=== PATIENT | female | born 1945 | race Caucasian/White ===

== ENCOUNTER 2016-10-31 11:57 | Outpatient (CLI) | payer MEDICARE | END 2016-10-31 11:58 | disposition home or self-care (01) | DX: R06.00 Dyspnea, unspecified (principal); K44.9 Diaphragmatic hernia without obstruction or gangrene ==

== ENCOUNTER 2017-05-29 19:53 | Outpatient (CLI) | payer MEDICARE | END 2017-05-29 19:54 | disposition home or self-care (01) | LOC: LAB.R 19:53 | PROVIDERS: ATTEND Physician Assistant Medical | DX: N30.00 Acute cystitis without hematuria (principal) | CPT/HCPCS: 87086 ==

== ENCOUNTER 2017-07-27 15:37 | Emergency (ER) | payer MEDICARE ==
[2017-07-27 15:51] VITALS: BP 195/96
--- NOTE | 2017-07-27 16:35 | XRAY Preliminary Report ---
Exam: XR FOOT 3 VIEW LT IMPRESSION: Nondisplaced fifth metatarsal base fracture. [facility] SITE ID: [id number]
--- NOTE | 2017-07-27 16:37 | XRAY Report ---
EXAM: LEFT FOOT RADIOGRAPHY EXAM DATE: 07/27/2017 04:08 PM. CLINICAL HISTORY: Twist, pain. COMPARISON: None. TECHNIQUE: 3 views. FINDINGS: Bones: Osteopenia. Nondisplaced transverse fracture of fifth metatarsal base. Otherwise unremarkable. Joints: Normal. No subluxations. Soft Tissues: Mild soft tissue swelling. IMPRESSION: Nondisplaced fifth metatarsal base fracture. [facility] Referring Provider Line: [phone] SITE ID: [id number]
--- NOTE | 2017-07-27 16:44 | ED Physician Documentation ---
PD HPI LOWER EXT INJURY - Stated complaint Stated Complaint: Lt Foot pain - Chief complaint Chief Complaint: Trauma Ext - History obtained from History obtained from: Patient - History of Present Illness PD HPI LOW EXT INJURY LOCATION: Left, Foot Type of injury: Fall, Twist Where injury occurred: Street Timing - onset: Today Worsened by: Other (weightbearing) Associated symptoms: No: Weakness, Numbness Similar symptoms before: Has not had sx before - Additional information Additional information: The patient is a 71-year-old female who tripped on the sidewalk just prior to arrival, twisting her left foot and falling. She presents now with swelling and pain at the lateral aspect of her left foot. Her pain is worse with weightbearing. She also reports having dropped firewood on the dorsum of her left foot 3 days ago. She denies any other injuries. Medical history is significant for hepatitis C. Review of Systems Constitutional: denies: Fever Respiratory: denies: Dyspnea GI: denies: Abdominal Pain Musculoskeletal: reports: Extremity pain (left foot). denies: Back pain Neurologic: denies: Focal weakness, Numbness, Head injury PD PAST MEDICAL HISTORY - Past Medical History Past Medical History: Yes Cardiovascular: Hypertension Respiratory: Asthma Neuro: None Endocrine/Autoimmune: None GI: GERD, Hiatal hernia, Hepatitis, Cholelithiasis : None HEENT: None Psych: None, Claustrophobia Musculoskeletal: None, Osteoarthritis, Other Derm: None - Past Surgical History Past Surgical History: Yes General: Cholecystectomy, Colonoscopy, EGD, Other Ortho: Arthroscopic surgery - Present Medications Home Medications: Ambulatory Orders Medication Instructions Recorded Confirmed Ascorbic Acid [Vitamin C] 1,000 mg PO DAILY 12/22/15 07/27/17 Calcium Carb/Mag Ox/Zinc Sulf [Hm 1 each PO DAILY 12/22/15 07/27/17 Tacuofs-Ybvppevay-Elxh Cplt] Cholecalciferol (Vitamin D3) 2,000 units PO DAILY 12/22/15 07/27/17 [Vitamin D3] Phytonadione [Vitamin K] 5 mg PO ONCE 12/22/15 07/27/17 Vitamin E 400 unit PO DAILY 12/22/15 07/27/17 Vitamin A 20,000 unit PO DAILY 07/27/17 07/27/17 - Allergies Allergies/Adverse Reactions: Allergies Allergy/AdvReac Type Severity Reaction Status Date / Time lidocaine Allergy Unknown Verified 10/17/14 11:21 phenazopyridine HCl * Allergy Unknown Verified 10/17/14 11:21 [From Pyridium] Sulfa (Sulfonamide Allergy Anxiety Verified 10/17/14 11:21 Antibiotics) - Social History Does the pt smoke?: No Smoking Status: Never smoker Does the pt drink ETOH?: No Does the pt have substance abuse?: No - Immunizations Immunizations are current?: Yes PD ED PE NORMAL - Vitals Vital signs reviewed: Yes (hypertensive) - General General: Alert and oriented X 3, Well developed/nourished, Other (overweight) - HEENT HEENT: Atraumatic - Neck Neck: No bony TTP - Respiratory Respiratory: No respiratory distress - Back Back: No spinal TTP - Derm Derm: No rash - Extremities Extremities: No calf tenderness / cord, Other (There is slight swelling and associated tenderness to palpation over the lateral aspect of the left foot at the base of the fifth metatarsal. There is a very superficial abrasion on the dorsum of the midfoot. Distal neurovascular is intact.) - Neuro Neuro: Alert and oriented X 3, No motor deficit, No sensory deficit Results - Vitals Vitals: Oxygen O2 Source Room air - Rads (name of study) left foot Radiology: Prelim report reviewed, EMP read contemporaneously, See rad report ( Nondisplaced fifth metatarsal base fracture.) PD MEDICAL DECISION MAKING - ED course Complexity details: reviewed results, re-evaluated patient, considered differential, d/w patient ED course: The patient's presentation is significant for a nondisplaced fracture at the base of the left fifth metatarsal tarsal. Treatment in the emergency included application of a postop shoe. She demonstrates ability to ambulate using her cane. I discussed with her the expected course of injury, symptomatic treatment and outpatient follow-up, as well as potentially worrisome signs or symptoms that should prompt reevaluation in the emergency department. Departure - Departure Disposition: 01 Home, Self Care Clinical Impression: Fractured metatarsal bone Qualifiers: Encounter type: initial encounter Metatarsal bone: fifth Fracture type: closed Fracture alignment: nondisplaced Laterality: left Qualified Code(s): S92.355A - Nondisplaced fracture of fifth metatarsal bone, left foot, initial encounter for closed fracture Condition: Stable Instructions: ED Fx Foot Follow-Up: Pankaj Ferrara ARNP [Primary Care Provider] - [facility] [Provider Group] Comments: Keep your left foot elevated as much the time as possible. Apply icepack intermittently for the next 3 days. Use the postop shoe when walking. Follow up with her primary physician or with the alignment specialist within 2 weeks. Call to schedule an appointment. Return to the emergency department if you develop markedly increasing pain or swelling, or otherwise worsening symptoms. Discharge Date/Time: 07/27/17 17:54
== END 2017-07-27 17:54 | disposition home or self-care (01) ==
LOC: ED 15:37
DX: S92.355A Nondisplaced fracture of fifth metatarsal bone, left foot, initial encounter for closed fracture (principal); W01.0XXA Fall on same level from slipping, tripping and stumbling without subsequent striking against object, initial encounter; X50.9XXA Other and unspecified overexertion or strenuous movements or postures, initial encounter; W22.8XXA Striking against or struck by other objects, initial encounter; Y93.K1 Activity, walking an animal; Y92.480 Sidewalk as the place of occurrence of the external cause; I10 Essential (primary) hypertension
CPT/HCPCS: 99283

== ENCOUNTER 2017-08-27 08:04 | Outpatient (CLI) | payer MEDICARE ==
--- NOTE | 2017-08-27 10:06 | Ultrasound Report ---
RIGHT UPPER QUADRANT ULTRASOUND: 08/27/2017 CLINICAL INDICATION: Cirrhosis. COMPARISON: 08/10/2016. TECHNIQUE: Real-time scanning was performed with manufacturing sales representative static images obtained. FINDINGS: The liver measures 16.2 cm. Hepatic echogenicity is heterogeneous, with a mild lobulation of the surface, compatible with cirrhosis. No focal lesion or intrahepatic biliary dilatation is pres ent. The common bile duct measures 7 mm. The gallbladder is surgically absent. The right kidney measu res 10.2 cm, and demonstrates no hydronephrosis. No free fluid is present. IMPRESSION: CIRRHOTIC CHANGES IN THE LIVER. NO FOCAL MASS OR BILIARY DILATATION. CHANGES OF CHOLECYS TECTOMY. 9:9:03 JOB #: [id number] EXT JOB #:[id number]
== END 2017-08-27 08:05 | disposition home or self-care (01) ==
LOC: DI 08:04
PROVIDERS: ATTEND Physician Assistant
DX: K74.60 Unspecified cirrhosis of liver (principal); Z90.49 Acquired absence of other specified parts of digestive tract
CPT/HCPCS: 76705

== ENCOUNTER 2018-01-28 09:01 | Outpatient (CLI) | payer MEDICARE ==
--- NOTE | 2018-01-28 13:17 | Ultrasound Report ---
COMPLETE ABDOMINAL ULTRASOUND: 01/28/2018 CLINICAL INDICATION: Hepatitis C. COMPARISON: 07/27/2017. TECHNIQUE: Real-time scanning was performed with insurance sales representative static images obtained. FINDINGS: The liver measures 17 cm. Hepatic echotexture is heterogeneous, with a nodular surface contour, compatible with cirrhosis. No focal parenchymal lesion or intrahepatic biliary dilatation is seen. The common bile duct measures 7 mm. The gallbladder is surgically absent. The pancreas is obscured by bowel gas. The kidneys are normal, with the right measuring 10.2 cm and the left measuring 11.4 cm. The spleen measures 10.2 cm, and demonstrates normal echotexture. The abdominal aorta is normal in caliber throughout. The inferior vena cava is unremarkable. No free fluid is present. IMPRESSION: CIRRHOTIC LIVER. NO FOCAL LESION OR BILIARY OBSTRUCTION. TD: 01/28/2018 13:16
== END 2018-01-28 09:02 | disposition home or self-care (01) ==
LOC: DI 09:01
PROVIDERS: ATTEND Internal Medicine Gastroenterology
DX: B19.20 Unspecified viral hepatitis C without hepatic coma (principal); K74.69 Other cirrhosis of liver
CPT/HCPCS: 76700

== ENCOUNTER 2018-03-26 11:54 | Outpatient (CLI) | payer MEDICARE ==
--- NOTE | 2018-03-27 14:53 | DEXA Report ---
Procedure Date: 03/26/2018 Accession Number: [id number] / [id number] Procedure: DEX - Dexa Spine and/or Hip CPT Code: FULL RESULT: EXAM: Dexa Spine and/or Hip DATE: 03/26/2018 12:52 PM CLINICAL HISTORY: OSTEOPOROSIS TECHNIQUE: Dual energy x-ray absorptiometry (DXA) was performed on a lmbang System. Regions measured are the AP Spine, femoral neck, and if needed forearm. COMPARISON: None. In accordance with the International Society for Clinical Densitometry (ISCD) guidelines, data from previous exams may be reanalyzed using current recommendations and techniques. This is done to allow a more accurate basis for comparison with the current study. FINDINGS: The data for the lumbar spine is as follows: BMD (g/cm/cm) T-SCORE Z-SCORE REGION L1 0.879 -2.1 -1.4 L2 0.859 -2.8 -2.1 L3 0.826 -3.1 -2.4 L4 0.776 -3.5 -2.8 TOTAL 0.833 -2.9 -2.2 NOTE: All evaluable vertebrae are used for classification The data for the hip is as follows: BMD (g/cm/cm) T-SCORE Z-SCORE REGION Neck 0.642 -2.9 -1.7 TOTAL 0.728 -2.2 -1.3 NOTE: The femoral neck or total proximal femur, whichever is lowest, is used for classification. IMPRESSION: THE WHO CLASSIFICATION BASED ON THE INTERNATIONAL REFERENCE STANDARD IS OSTEOPOROSIS. THE FRACTURE RISK IS HIGH. RECOMMENDATION: Patients with diagnosis of osteoporosis or osteopenia should have regular bone mineral density assessment. For those eligible for Medicare, routine testing is allowed once every 2 years. Testing frequency can be increased for patients who have rapidly progressing disease or for those who are receiving medical therapy to restore bone mass. COMMENT: World Health Organization (WHO) definitions for osteoporosis and osteopenia: NORMAL BMD: T-score at -1.0 or higher, fracture risk is low OSTEOPENIA BMD: T-score between -1.0 and -2.5, fracture risk is increased. OSTEOPOROSIS BMD: T-score at -2.5 or lower, fracture risk is high. National Osteoporosis Foundation recommends: 1. Obtain adequate dietary calcium (at least 1200 mg per day) and vitamin D (400-800 international units per day). 2. Participate, as appropriate, in regular weightbearing and muscle-strengthening exercise. 3. Avoid tobacco use and reduce alcohol and caffeine intake. 4. For more detailed information see the website at www.NOF.org.
== END 2018-03-26 11:55 | disposition home or self-care (01) ==
LOC: DI 11:54
PROVIDERS: ATTEND Nurse Practitioner Primary Care
DX: M81.0 Age-related osteoporosis without current pathological fracture (principal); Z79.899 Other long term (current) drug therapy
CPT/HCPCS: 77080

== ENCOUNTER 2018-04-29 14:52 | Outpatient (CLI) | payer MEDICARE ==
--- NOTE | 2018-05-01 08:44 | Mammography Report ---
Procedure Date: 04/29/2018 Accession Number: [id number] / [id number] Procedure: MGN - Screening Mammo Dig Bilat CPT Code: FULL RESULT: EXAM: Screening Mammo Dig Bilat DATE: 04/29/2018 3:17 PM CLINICAL HISTORY: 72-year-old female with history of early menses and family history of breast cancer in her mother at age 60 with a right breast cyst surgically removed in 1965 with benign pathology results. TECHNIQUE: Bilateral CC and MLO views were obtained. COMPARISON: 01/04/2016, 12/17/2014, 11/10/2013, 10/18/2012. FINDINGS: The breasts demonstrate diffuse fatty replacement bilaterally. Typically benign coarse calcifications are seen in both breasts. Typically benign vascular calcifications are identified in both breasts. No suspicious masses, clustered microcalcifications, or regions of architectural distortion are identified. IMPRESSION: Benign findings RECOMMENDATION: Routine annual screening unless otherwise clinically indicated. BIRADS CATEGORY 2: Benign findings STANDARD QUALIFYING STATEMENTS: 1. This examination was reviewed with the aid of Computer-Aided Detection (CAD). 2. A negative or benign imaging report should not delay biopsy if clinically suspicious findings are present. Consider surgical consultation if warrented. More than 5% of cancers are not identified by imaging. 3. Dense breasts may obscure an underlying neoplasm.
== END 2018-04-29 14:53 | disposition home or self-care (01) ==
LOC: DI.N 14:52
PROVIDERS: ATTEND Nurse Practitioner Primary Care
DX: Z12.31 Encounter for screening mammogram for malignant neoplasm of breast (principal); Z80.3 Family history of malignant neoplasm of breast
CPT/HCPCS: 77067

== ENCOUNTER 2018-05-13 08:24 | Outpatient (CLI) | payer MEDICARE ==
[2018-05-13 12:03] LABS: BASOPHILS % (AUTO) 0.5 %; EOSINOPHILS # (AUTO) 0.2 10^3/uL (0.0-0.7); EOSINOPHILS % (AUTO) 4.6 %; HGB - HEMOGLOBIN 13.5 g/dL (12.0-16.0); LYMPHOCYTES # (AUTO) 1.5 10^3/uL (1.5-3.5); LYMPHOCYTES % (AUTO) 28.9 %; MEAN CORPUSCULAR HEMOGLOBIN 28.8 pg (27.0-31.0); MEAN CORPUSCULAR HGB CONC 33.9 g/dL (32.0-36.0); MEAN CORPUSCULAR VOLUME 84.9 fL (81.0-99.0); MEAN PLATELET VOLUME 8.2 fL (7.9-10.8); MONOCYTES # (AUTO) 0.6 10^3/uL (0.0-1.0); MONOCYTES % (AUTO) 10.9 %; NEUTROPHILS # (AUTO) 2.9 10^3/uL (1.5-6.6); NEUTROPHILS % (AUTO) 55.1 %; PLT - PLATELET COUNT 221 10^3/uL (130-450); RED BLOOD COUNT 4.69 10^6/uL (4.20-5.40); RED CELL DISTRIBUTION WIDTH 14.7 % (12.0-15.0); WHITE BLOOD COUNT 5.2 x10^3/uL (4.8-10.8)
[2018-05-13 12:21] LABS: ALBUMIN 3.5 g/dL (3.2-5.5); ALKALINE PHOSPHATASE 51 IU/L (42-121); ALT ALANINE AMINOTRANSFERASE 15 IU/L (10-60); AST ASPARTATE AMINOTRANSFERASE 21 IU/L (10-42); BILIRUBIN,TOTAL 0.8 mg/dL (0.2-1.0); BUN - BLOOD UREA NITROGEN 14 mg/dL (6-20); CALCIUM 9.1 mg/dL (8.5-10.3); CARBON DIOXIDE - CO2 27 mmol/L (21-32); CHLORIDE 104 mmol/L (101-111); CHOL/HDL RATIO 5.2 (<4.4); CHOLESTEROL 194 mg/dL; CREATININE 0.7 mg/dL (0.4-1.0); GFR - MDRD 82 (>89); GLUCOSE 103 mg/dL (70-100); HDL CHOLESTEROL 37 mg/dL; LDL CHOLESTEROL,CALCULATED 124 mg/dL; LDL/HDL RATIO 3.4 (<4.4); SODIUM 137 mmol/L (135-145); TOTAL PROTEIN 7.1 g/dL (6.7-8.2); VLDL CHOLESTEROL 33 mg/dL
== END 2018-05-13 08:25 | disposition home or self-care (01) ==
LOC: LAB.F 08:24
PROVIDERS: ATTEND Nurse Practitioner Primary Care
DX: M81.0 Age-related osteoporosis without current pathological fracture (principal); Z79.899 Other long term (current) drug therapy; E78.5 Hyperlipidemia, unspecified; I10 Essential (primary) hypertension; Z87.19 Personal history of other diseases of the digestive system
CPT/HCPCS: 36415; 80053; 80061; 82306; 83721; 84443; 85025

== ENCOUNTER 2018-06-11 11:50 | Outpatient (CLI) | payer MEDICARE ==
[2018-06-11 13:36] LABS: BASOPHILS % (AUTO) 0.8 %; EOSINOPHILS # (AUTO) 0.2 10^3/uL (0.0-0.7); EOSINOPHILS % (AUTO) 4.3 %; HGB - HEMOGLOBIN 12.8 g/dL (12.0-16.0); LYMPHOCYTES # (AUTO) 1.4 10^3/uL (1.5-3.5); LYMPHOCYTES % (AUTO) 30.8 %; MEAN CORPUSCULAR HEMOGLOBIN 28.8 pg (27.0-31.0); MEAN CORPUSCULAR HGB CONC 34.3 g/dL (32.0-36.0); MEAN CORPUSCULAR VOLUME 84.1 fL (81.0-99.0); MEAN PLATELET VOLUME 8.2 fL (7.9-10.8); MONOCYTES # (AUTO) 0.5 10^3/uL (0.0-1.0); MONOCYTES % (AUTO) 11.3 %; NEUTROPHILS # (AUTO) 2.4 10^3/uL (1.5-6.6); NEUTROPHILS % (AUTO) 52.8 %; PLT - PLATELET COUNT 241 10^3/uL (130-450); RED BLOOD COUNT 4.42 10^6/uL (4.20-5.40); RED CELL DISTRIBUTION WIDTH 14.2 % (12.0-15.0); WHITE BLOOD COUNT 4.5 x10^3/uL (4.8-10.8)
[2018-06-11 13:44] LABS: ALBUMIN 3.5 g/dL (3.2-5.5); BILIRUBIN,TOTAL 0.5 mg/dL (0.2-1.0); CREATININE 0.6 mg/dL (0.4-1.0); TOTAL PROTEIN 6.9 g/dL (6.7-8.2)
== END 2018-06-11 11:51 | disposition home or self-care (01) ==
LOC: LAB.R 11:50
PROVIDERS: ATTEND Nurse Practitioner Primary Care
DX: R10.11 Right upper quadrant pain (principal); K74.69 Other cirrhosis of liver
CPT/HCPCS: 80053; 85025

== ENCOUNTER 2018-07-16 15:50 | Outpatient (CLI) | payer MEDICARE | END 2018-07-16 15:51 | disposition home or self-care (01) | LOC: LAB.R 15:50 | PROVIDERS: ATTEND Physician Assistant Medical | DX: N30.00 Acute cystitis without hematuria (principal) | CPT/HCPCS: 87086 ==

== ENCOUNTER 2018-07-23 07:26 | Outpatient (CLI) | payer MEDICARE ==
--- NOTE | 2018-07-23 14:42 | Ultrasound Report ---
Reason: CHRONIC HEPATISIS C WITH CIRRHOSIS Procedure Date: 07/23/2018 Accession Number: [id number] / [id number] Procedure: US - Abdomen Limited CPT Code: FULL RESULT: EXAM: ABDOMEN ULTRASOUND LIMITED, RUQ EXAM DATE: 07/23/2018 07:33 AM. CLINICAL HISTORY: CHRONIC HEPATISIS C WITH CIRRHOSIS. For follow-up COMPARISON: 01/28/2018 TECHNIQUE: Real-time scanning was performed with static images obtained. FINDINGS: Liver: Coarse echotexture consistent with fatty infiltration. Left lobe nodular contour. No masses. 16.9 cm. Main portal vein flow: Hepatopetal. Gallbladder: Surgically absent. Biliary System: CBD measures 5 mm. No intrahepatic or extrahepatic ductal dilatation. Free fluid: None. Right kidney: 10.4 cm longitudinally. No hydronephrosis. IMPRESSION: Status post cholecystectomy. Cirrhotic liver without masses. [facility]
== END 2018-07-23 07:27 | disposition home or self-care (01) ==
LOC: DI 07:26
PROVIDERS: ATTEND Internal Medicine Gastroenterology
DX: B18.2 Chronic viral hepatitis C (principal); K74.60 Unspecified cirrhosis of liver; Z90.49 Acquired absence of other specified parts of digestive tract
CPT/HCPCS: 76705

== ENCOUNTER 2018-10-25 13:33 | Outpatient (CLI) | payer MEDICARE ==
[2018-10-25 17:57] LABS: ALT ALANINE AMINOTRANSFERASE 14 IU/L (10-60); AST ASPARTATE AMINOTRANSFERASE 21 IU/L (10-42)
[2018-10-25 18:05] LABS: INR 1.1 (0.8-1.2); PT - PROTHROMBIN TIME 12.5 secs (9.9-12.6)
== END 2018-10-25 13:34 | disposition home or self-care (01) ==
LOC: LAB.F 13:33
PROVIDERS: ATTEND Nurse Practitioner Primary Care
DX: Z79.899 Other long term (current) drug therapy (principal)
CPT/HCPCS: 36415; 84450; 84460; 85610

== ENCOUNTER 2019-01-04 16:01 | Outpatient (CLI) | payer MEDICARE | END 2019-01-04 16:02 | disposition critical access hospital (66) | LOC: EMS 16:01 | PROVIDERS: ATTEND Surgery | DX: R11.2 Nausea with vomiting, unspecified (principal); R53.1 Weakness | CPT/HCPCS: A0425; A0429 ==

== ENCOUNTER 2019-01-04 16:23 | Emergency (ER) | payer MEDICARE ==
--- NOTE | 2019-01-04 16:33 | ED Physician Documentation ---
History of Present Illness - Stated complaint Stated Complaint: N/V/D - History obtained from History obtained from: Patient - History of Present Illness Timing: Last night - Additonal information Additional information: Patient is a 73-year-old female with history of hypertension, although do have concern for other disease processes, including hepatitis given her report, although she denies specific diagnoses or taking medications for such. She is presenting with nausea, vomiting, and diarrhea for less than 24 hours, which started last night. Patient also complains of a subjective fever for which she took 2 Tylenol earlier today, but believes that she vomited them back up nearly immediately. Patient denies abdominal pain or other pain except for when she is actively vomiting or having diarrhea.Patient reports that she has been able to tolerate Gatorade and is urinating well. Patient states that she had no new food exposures or new medications. Patient did admit to cleaning up a rat in her trailer yesterday during the day, but denies any other environmental exposures. No other improving or worsening factors. Review of Systems Constitutional: reports: Fever Respiratory: denies: Dyspnea GI: reports: Abdominal Pain, Nausea, Vomiting, Diarrhea PD PAST MEDICAL HISTORY - Past Medical History Cardiovascular: Hypertension Respiratory: Asthma Endocrine/Autoimmune: None GI: GERD, Hiatal hernia, Hepatitis, Cholelithiasis : None HEENT: None Psych: None, Claustrophobia Musculoskeletal: None, Osteoarthritis, Other Derm: None - Past Surgical History Past Surgical History: Yes General: Cholecystectomy, Colonoscopy, EGD, Other Ortho: Arthroscopic surgery - Present Medications Home Medications: Ambulatory Orders Medication Instructions Recorded Confirmed Ascorbic Acid [Vitamin C] 1,000 mg PO DAILY 12/22/15 06/06/18 Calcium Carb/Mag Ox/Zinc Sulf [Hm 1 each PO DAILY 12/22/15 06/06/18 Aetegst-Jyphicvgw-Uokq Cplt] Cholecalciferol (Vitamin D3) 2,000 units PO DAILY 12/22/15 06/06/18 [Vitamin D3] Phytonadione [Vitamin K] 5 mg PO ONCE 12/22/15 06/06/18 RX: Vitamin E 400 unit PO DAILY 12/22/15 06/06/18 RX: Vitamin A 20,000 unit PO DAILY 07/27/17 06/06/18 Clonidine HCl [Catapres] 0.3 mg PO DAILY 06/06/18 06/06/18 Ondansetron Odt [Zofran] 4 mg TL Q6H PRN #10 tablet 01/04/19 - Allergies Allergies/Adverse Reactions: Allergies Allergy/AdvReac Type Severity Reaction Status Date / Time lidocaine Allergy Unknown Verified 01/04/19 16:35 phenazopyridine HCl * Allergy Unknown Verified 01/04/19 16:35 [From Pyridium] Sulfa (Sulfonamide Allergy Anxiety Verified 01/04/19 16:35 Antibiotics) - Social History Does the pt smoke?: No Smoking Status: Never smoker Does the pt drink ETOH?: No Does the pt have substance abuse?: No - Immunizations Immunizations are current?: Yes PD ED PE NORMAL - General General: Alert and oriented X 3, No acute distress, Well developed/nourished - HEENT HEENT: Atraumatic, Pharynx benign. No: Moist mucous membranes (Slightly dry mucous membranes) - Neck Neck: Supple, no meningeal sign - Cardiac Cardiac: RRR, No murmur - Respiratory Respiratory: No respiratory distress, Clear bilaterally - Abdomen Abdomen: Normal bowel sounds, Soft, Non tender, Non distended - Derm Derm: Normal color, Warm and dry, No rash - Extremities Extremities: No deformity, No tenderness to palpate, No edema - Neuro Neuro: Alert and oriented X 3, No motor deficit, No sensory deficit - Psych Psych: Normal mood, Normal affect Results - Vitals Vitals: Vital Signs - 24 hr 01/04/19 01/04/19 01/04/19 16:31 18:37 19:23 Temperature 37.8 C H 37.2 C Heart Rate 92 80 84 Respiratory 20 22 19 Rate Blood Pressure 168/70 H 177/66 H 174/69 H O2 Saturation 97 96 95 01/04/19 20:58 Temperature 36.3 C L Heart Rate 79 Respiratory 15 Rate Blood Pressure 178/79 H O2 Saturation 97 Oxygen O2 Source Room air - Labs Labs: Laboratory Tests 01/04/19 01/04/19 01/04/19 17:00 17:00 17:00 WBC 5.8 RBC 4.80 Hgb 12.5 Hct 38.9 MCV 81.1 MCH 26.0 L MCHC 32.0 RDW 14.8 Plt Count 257 MPV 8.2 Neut # (Auto) 5.0 Lymph # (Auto) 0.3 L [place] # (Auto) 0.4 Eos # (Auto) 0.0 Baso # (Auto) 0.0 Absolute Nucleated RBC 0.00 Nucleated RBC % 0.0 Sodium 141 Potassium 3.2 L Chloride 106 Carbon Dioxide 21 Anion Gap 14.0 H BUN 16 Creatinine 0.6 Estimated GFR (MDRD) 98 Glucose 133 H Lactic Acid 2.4 H Calcium 9.0 Total Bilirubin 0.9 AST 26 ALT 16 Alkaline Phosphatase 50 Total Protein 7.8 Albumin 3.9 Globulin 3.9 Albumin/Globulin Ratio 1.0 Lipase 22 Urine Color Urine Clarity Urine pH Ur Specific [place] Urine Protein Urine Glucose (UA) Urine Ketones Urine Occult Blood Urine Nitrite Urine Bilirubin Urine Urobilinogen Ur Leukocyte Esterase Ur Microscopic Review Urine Culture Comments Influenza A (Rapid) Influenza B (Rapid) 01/04/19 01/04/19 01/04/19 18:01 19:30 19:40 WBC RBC Hgb Hct MCV MCH MCHC RDW Plt Count MPV Neut # (Auto) Lymph # (Auto) [place] # (Auto) Eos # (Auto) Baso # (Auto) Absolute Nucleated RBC Nucleated RBC % Sodium Potassium Chloride Carbon Dioxide Anion Gap BUN Creatinine Estimated GFR (MDRD) Glucose Lactic Acid 1.7 Calcium Total Bilirubin AST ALT Alkaline Phosphatase Total Protein Albumin Globulin Albumin/Globulin Ratio Lipase Urine Color YELLOW Urine Clarity CLEAR Urine pH 5.5 Ur Specific [place] 1.020 Urine Protein NEGATIVE Urine Glucose (UA) NEGATIVE Urine Ketones NEGATIVE Urine Occult Blood NEGATIVE Urine Nitrite NEGATIVE Urine Bilirubin NEGATIVE Urine Urobilinogen 0.2 (NORMAL) Ur Leukocyte Esterase NEGATIVE Ur Microscopic Review NOT INDICATED Urine Culture Comments NOT INDICATED Influenza A (Rapid) Negative Influenza B (Rapid) Negative PD MEDICAL DECISION MAKING - ED course Complexity details: reviewed results, re-evaluated patient, considered differential, d/w patient ED course: Concerning for viral illness, gastroenteritis, as well as other exposure related issues like hanta virus given patient's recent exposure to rodents, particularly a rat. Also concerned generally for sepsis, although unsure of source, likely intra-abdominal, particularly given patient's symptoms and vital signs. Patient started on fluid resuscitation and given borderline elevated temperature, received IV Tylenol in addition to antiemetic medication. Did not feel she required immediate empiric antibiotics, but wanted to wait for additional information from blood work and testing. Given concern for hanta virus and sepsis, ordered imaging of chest x-ray, although patient has minimal to no respiratory complaints.Patient declined as she stated she recently had chest x-ray that returned unremarkable. Screening lab work returned relatively unremarkable except for elevated lactic acid alone, no acute kidney injury or leukocytosis noted. Additionally, no significant anemia or electrolyte disturbances noted. Patient continued on fluid resuscitation for likely dehydration. Urinalysis also returned without evidence of obvious infection.Did obtain CT imaging of abdomen/pelvis which do not find evidence of acute pathology such as appendicitis, small bowel obstruction, AAA, diverticulitis. During repeat ED evaluations, patient reported significant improvement of all symptoms and much more comfortable. Had extensive discussions regarding possible hanta virus, as well as results of today's workup. At this time, patient is most comfortable with discharge home and feel that this is appropriate given her significant improvement, particularly in normalization of her lactic acid following fluid resuscitation. Additionally, after conferring with the colleague, it is unlikely that this hospital has a capability of hanta virus testing, which would likely be a send out and the results would likely not change our treatment path. Feel that patient can continue supportive cares at home versus hospitalization. Patient voiced understanding of all strict return precautions and follow-up instructions. Patient comfortable with discharge plan. Departure - Departure Disposition: Home, Self Care Clinical Impression: Viral syndrome Condition: Good Instructions: Nausea Vomit Control, ED Diet Vomiting Diarrhea, ED Viral Syndrome Follow-Up: Kimmy Welch ARNP [Primary Care Provider] - Within 3 Days Prescriptions: Ondansetron Odt [Zofran] 4 mg TL Q6H PRN #10 tablet PRN Reason: Nausea / Vomiting Comments: Please use Zofran as instructed for nausea and vomiting control. Recommend use of Gatorade/Powerade and advancing diet as tolerated. Please follow-up with your primary care physician on Sunday if you cannot get an appointment for follow-up then, please return to the ED for reevaluation. Additionally, if you have any worsening symptoms including fever, persistent nausea or vomiting, worsening diarrhea, abdominal pain, difficulty breathing, cough or other concerns, please return immediately to the ED. Discharge Date/Time: 01/04/19 20:58
[2019-01-04] MEDS ORDERED: SODIUM CHLORIDE 0.9% 2,000 ML IV ONE (16:46)
[2019-01-04] MEDS ORDERED: ONDANSETRON 4 MG/2 ML VIAL IVP STA (16:46)
[2019-01-04] MEDS ORDERED: ACETAMINOPHEN 1,000 MG/100 ML 100 ML IV STA (16:47)
[2019-01-04 17:12] LABS: BASOPHILS % (AUTO) 0.3 %; EOSINOPHILS % (AUTO) 0.1 %; HGB - HEMOGLOBIN 12.5 g/dL (12.0-16.0); LYMPHOCYTES # (AUTO) 0.3 10^3/uL (1.5-3.5); LYMPHOCYTES % (AUTO) 5.2 %; MEAN CORPUSCULAR VOLUME 81.1 fL (81.0-99.0); MEAN PLATELET VOLUME 8.2 fL (7.9-10.8); MONOCYTES # (AUTO) 0.4 10^3/uL (0.0-1.0); MONOCYTES % (AUTO) 6.8 %; NEUTROPHILS % (AUTO) 87.6 %; PLT - PLATELET COUNT 257 10^3/uL (130-450); RED CELL DISTRIBUTION WIDTH 14.8 % (12.0-15.0); WHITE BLOOD COUNT 5.8 x10^3/uL (4.8-10.8)
[2019-01-04 17:21] LABS: ALBUMIN 3.9 g/dL (3.2-5.5); BILIRUBIN,TOTAL 0.9 mg/dL (0.2-1.0); CREATININE 0.6 mg/dL (0.4-1.0); TOTAL PROTEIN 7.8 g/dL (6.7-8.2)
[2019-01-04] MEDS ORDERED: SODIUM CHLORIDE 0.9% 1,000 ML IV ONE (17:54)
[2019-01-04] MEDS ORDERED: IOPAMIDOL-300 100 ML VIAL ONE (18:07)
[2019-01-04] MEDS ORDERED: IOPAMIDOL-300 100 ML VIAL IVP ONE (18:29)
--- NOTE | 2019-01-04 18:44 | CT Report ---
Reason: n/v/d Procedure Date: 01/04/2019 Accession Number: [id number] / [id number] Procedure: CT - Abdomen/Pelvis W CPT Code: FULL RESULT: EXAM: CT ABDOMEN AND PELVIS EXAM DATE: 01/04/2019 06:27 PM. CLINICAL HISTORY: Nausea of vomiting and diarrhea COMPARISONS: ABDOMEN/PELVIS W/ 06/15/2016 8:56 AM. TECHNIQUE: Routine helical CT imaging was performed through the abdomen and pelvis. IV contrast: 100 mL of Isovue-300. Enteric contrast: No. Reconstructions: Coronal and sagittal. In accordance with CT protocol optimization, one or more of the following dose reduction techniques were utilized for this exam: automated exposure control, adjustment of mA and/or KV based on patient size, or use of iterative reconstructive technique. FINDINGS: Lung Bases: Mild hiatal hernia is seen. Liver: Normal. No masses. Gallbladder/Bile Ducts: Cholecystectomy changes are seen. There is no biliary dilation. Spleen: Normal. Pancreas: Normal. Adrenal Glands: Normal. Kidneys: Normal. No masses or hydronephrosis. Peritoneal Cavity/Bowel: A large ventral hernia containing bowel loops is seen. There are scattered fluid-filled minimally prominent small and large bowel loops with no findings to suggest obstruction or ileus. No intra-abdominal inflammatory process is seen. No adenopathy, free fluid, or free air. Pelvic Organs: Large fat-containing ventral hernia is seen. No pelvic adenopathy or mass. No free fluid. Vasculature: No aneurysms or other significant abnormality. Bones: No significant abnormality. Other: None. IMPRESSION: 1. No acute intra-abdominal inflammatory process identified. Scattered fluid-filled small and large bowel loops could represent gastroenteritis changes. 2. Large ventral hernias in the abdomen containing bowel and pelvis containing fat. 3. Mild hiatal hernia. [facility]
[2019-01-04 19:46] LABS: BILIRUBIN,URINE NEGATIVE (NEGATIVE); GLUCOSE, URINE (UA) NEGATIVE (NEGATIVE); KETONES,URINE (UA) NEGATIVE (NEGATIVE); LEUKOCYTE ESTERASE, URINE NEGATIVE (NEGATIVE); NITRITE,URINE NEGATIVE (NEGATIVE); OCCULT BLOOD,URINE NEGATIVE (NEGATIVE); PH,URINE 5.5 PH (5.0-7.5); PROTEIN,URINE NEGATIVE (NEGATIVE); UROBILINOGEN,URINE 0.2 (NORMAL) E.U./dL (NORMAL)
[2019-01-04 19:48] LABS: CLARITY,URINE CLEAR (CLEAR)
[2019-01-04 20:58] VITALS: BP 178/79
== END 2019-01-04 20:58 | disposition home or self-care (01) ==
LOC: EDUNIT# → ED 16:23
DX: B34.9 Viral infection, unspecified (principal); I10 Essential (primary) hypertension; K75.9 Inflammatory liver disease, unspecified
CPT/HCPCS: 36415; 74177; 80053; 81003; 83605; 83690; 85025; 87040; 87275; 87276; 96361; 96374; 96375; 99283; 99284; J0131; Q9967; 81001; 87086

== ENCOUNTER 2019-01-28 09:23 | Outpatient (CLI) | payer MEDICARE ==
--- NOTE | 2019-01-28 11:50 | Ultrasound Report ---
Reason: CIRRHOSIS OF LIVER WITHOUT ASCITES,UNSPECIFIED HEP Procedure Date: 01/28/2019 Accession Number: [id number] / [id number] Procedure: US - Abdomen Complete CPT Code: FULL RESULT: EXAM: ABDOMEN ULTRASOUND EXAM DATE: 01/28/2019 10:26 AM. CLINICAL HISTORY: Cirrhosis of liver without ascites, unspecified hep. COMPARISON: None. TECHNIQUE: Real-time scanning was performed with static images obtained. FINDINGS: Liver: Liver contour is minimally nodular and parenchyma appears echogenic. This limits evaluation for underlying masses though none are seen. Right lobe of the liver measures at least 15.4 cm. Main portal vein flow: Hepatopetal. Gallbladder: Surgically absent Biliary System: Common bile duct measures 6 mm. No intrahepatic or extrahepatic ductal dilatation. Pancreas: Visualized portion is unremarkable. Kidneys: Right: 10.8 cm longitudinally. Normal. No contour-deforming mass, stones, or hydronephrosis. Left: 11.6 cm longitudinally. Normal. No contour-deforming mass, stones, or hydronephrosis. Spleen: 10.4 cm. Normal in size and echotexture. Aorta and Inferior Vena Cava: Unremarkable. Other: None. IMPRESSION: Echogenic parenchyma with mildly nodular liver contour is compatible with given history of cirrhosis. Limited sensitivity for hepatic masses, none is seen. RADIA
== END 2019-01-28 09:24 | disposition home or self-care (01) ==
LOC: DI 09:23
PROVIDERS: ATTEND Internal Medicine Gastroenterology
DX: K74.60 Unspecified cirrhosis of liver (principal)
CPT/HCPCS: 76700

== ENCOUNTER 2019-02-13 08:11 | Outpatient (CLI) | payer MEDICARE ==
[2019-02-13 12:31] LABS: ALBUMIN 3.4 g/dL (3.2-5.5); BILIRUBIN,TOTAL 0.6 mg/dL (0.2-1.0); CALCIUM 8.9 mg/dL (8.5-10.3); CREATININE 0.6 mg/dL (0.4-1.0); TOTAL PROTEIN 6.7 g/dL (6.7-8.2)
== END 2019-02-13 08:12 | disposition home or self-care (01) ==
LOC: LAB.F 08:11
PROVIDERS: ATTEND Registered Nurse
DX: K74.69 Other cirrhosis of liver (principal)
CPT/HCPCS: 36415; 80053

== ENCOUNTER 2019-05-18 07:37 | Emergency (ER) | payer MEDICARE ==
[2019-05-18] MEDS ORDERED: DEXAMETHASONE 10 MG/ML VIAL PO STA (09:09)
[2019-05-18] MEDS ORDERED: CHERRY SYRUP 10 ML UDC PO ONE (09:09)
--- NOTE | 2019-05-18 09:11 | ED Physician Documentation ---
PD VALADEZ HEENT - Stated complaint Stated Complaint: SORE THROAT - Chief complaint Chief Complaint: Heent - History obtained from History obtained from: Patient - History of Present Illness Timing - onset: How many days ago (2) Timing - duration: Days (2) Timing - details: Gradual onset, Still present Location: Throat Improves: Medication Worsens: Swalllowing Associated symptoms: Congestion. No: Cough Similar symptoms before: Has not had sx before Recently seen: Not recently seen - Additional information Additional information: 73-year-old female with a history of asthma has awakened with a sore throat yesterday morning. She states the pain is bad enough that she is not been able to take her medications this morning because she is not able to eat food because of the pain of swallowing. She had a fever last night she does not have a fever this morning she has had some drainage down the back of her throat she has not spit anything up. She is not coughing she is not having difficulty breathing. Review of Systems Constitutional: reports: Fever, Chills Eyes: denies: Decreased vision Ears: denies: Ear pain Nose: reports: Congestion. denies: Rhinorrhea / runny nose Throat: reports: Sore throat Cardiac: denies: Chest pain / pressure, Palpitations Respiratory: denies: Dyspnea, Cough GI: denies: Abdominal Pain, Nausea, Vomiting PD PAST MEDICAL HISTORY - Past Medical History Past Medical History: Yes Cardiovascular: Hypertension Respiratory: Asthma Neuro: Head injury Endocrine/Autoimmune: None GI: GERD, Hiatal hernia, Hepatitis, Cholelithiasis : None HEENT: None Psych: None, Claustrophobia Musculoskeletal: None, Osteoarthritis, Other Derm: None - Past Surgical History Past Surgical History: Yes General: Cholecystectomy, Colonoscopy, EGD, Other Ortho: Arthroscopic surgery - Present Medications Home Medications: Ambulatory Orders Medication Instructions Recorded Confirmed Ascorbic Acid [Vitamin C] 1,000 mg PO DAILY 12/22/15 06/06/18 Calcium Carb/Mag Ox/Zinc Sulf [Hm 1 each PO DAILY 12/22/15 06/06/18 [id number] Cplt] Cholecalciferol (Vitamin D3) 2,000 units PO DAILY 12/22/15 06/06/18 [Vitamin D3] Phytonadione [Vitamin K] 5 mg PO ONCE 12/22/15 06/06/18 Vitamin E 400 unit PO DAILY 12/22/15 06/06/18 Vitamin A 20,000 unit PO DAILY 07/27/17 06/06/18 Clonidine HCl [Catapres] 0.3 mg PO DAILY 06/06/18 06/06/18 Ondansetron Odt [Zofran] 4 mg TL Q6H PRN #10 tablet 01/04/19 Azithromycin [Zithromax] 250 mg PO DAILY #6 tablet 05/18/19 - Allergies Allergies/Adverse Reactions: Allergies Allergy/AdvReac Type Severity Reaction Status Date / Time phenazopyridine Allergy Emesis Verified 05/18/19 07:47 [From Pyridium] Sulfa (Sulfonamide Allergy Hallucinati Verified 05/18/19 07:47 Antibiotics) ons - Social History Does the pt smoke?: No Smoking Status: Never smoker Does the pt drink ETOH?: No Does the pt have substance abuse?: No - Immunizations Immunizations are current?: Yes - POLST Patient has POLST: No PD ED PE NORMAL - Vitals Vital signs reviewed: Yes (hypertensive ) - General General: Alert and oriented X 3, No acute distress, Well developed/nourished - HEENT HEENT: Atraumatic, PERRL, EOMI, Ears normal, Other (There is inflamation with swelling to the soft pallet and small pustules ) - Neck Neck: Supple, no meningeal sign, No bony TTP - Cardiac Cardiac: RRR, No murmur - Respiratory Respiratory: No respiratory distress, Clear bilaterally - Abdomen Abdomen: Soft, Non tender - Derm Derm: Normal color, Warm and dry, No rash - Extremities Extremities: No edema, Other (injury to the right leg) - Neuro Neuro: Alert and oriented X 3, 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, No motor deficit, No sensory deficit, Normal speech Eye Opening: Spontaneous Motor: Obeys Commands Verbal: Oriented GCS Score: 15 - Psych Psych: Normal mood, Normal affect Results - Vitals Vitals: Vital Signs - 24 hr 05/18/19 07:43 Temperature 36.5 C Heart Rate 75 Respiratory 16 Rate Blood Pressure 176/83 H O2 Saturation 97 Oxygen O2 Source Room air - Labs Labs: Laboratory Tests 05/18/19 07:53 Group A Strep Rapid Negative PD MEDICAL DECISION MAKING - ED course Complexity details: reviewed results, re-evaluated patient, considered differential, d/w patient ED course: 73-year-old female with acute pharyngitis does have pustules on the back of a swollen soft palate she is administered dexamethasone 10 mg orally and will place her on some azithromycin. Departure - Departure Disposition: 01 Home, Self Care Clinical Impression: Pharyngitis Qualifiers: Pharyngitis/tonsillitis etiology: unspecified etiology Qualified Code(s): J02.9 - Acute pharyngitis, unspecified Condition: Stable Instructions: ED Strep Pharyngitis Poss Follow-Up: Kimmy Welch ARNP [Primary Care Provider] - Prescriptions: Azithromycin [Zithromax] 250 mg PO DAILY #6 tablet
[2019-05-18 09:41] VITALS: BP 166/83
== END 2019-05-18 09:40 | disposition home or self-care (01) ==
LOC: ED 07:37
DX: J02.9 Acute pharyngitis, unspecified (principal); I10 Essential (primary) hypertension
CPT/HCPCS: 87070; 87430; 99283; 99284; A9270

== ENCOUNTER 2019-07-18 08:26 | Outpatient (CLI) | payer MEDICARE ==
--- NOTE | 2019-07-18 10:37 | Ultrasound Report ---
Reason: CIRRHOSIS OF LIVER Procedure Date: 07/18/2019 Accession Number: [id number] / [id number] Procedure: US - Abdomen Complete CPT Code: FULL RESULT: EXAM: ABDOMEN ULTRASOUND EXAM DATE: 07/18/2019 09:36 AM. CLINICAL HISTORY: CIRRHOSIS OF LIVER. COMPARISON: ABDOMEN COMPLETE 01/28/2019 9:41 AM ABDOMEN LIMITED 08/27/2017 8:40 AM ABD 10/31/2006 3:47 PM. TECHNIQUE: Real-time scanning was performed with static images obtained. FINDINGS: Liver: Heterogeneous. Nodular. No focal liver lesion. 15.2 cm. Main portal vein flow: Hepatopetal. Gallbladder: Cholecystectomy Biliary System: Common bile duct measures 7 mm. No intrahepatic or extrahepatic ductal dilatation. Pancreas: Visualized portion is unremarkable. Kidneys: Right: 10.5 cm longitudinally. Hypoechoic lesion in the superior pole measures 2.1 x 1.8 x 1.5 cm, without internal color signal/vascularity, with ill-defined margins. No hydronephrosis. Left: 12.1 cm longitudinally. Normal. No contour-deforming mass, stones, or hydronephrosis. Spleen: 9.5 x 3.2 x 9.3 cm for a volume of 148 mL. Normal in size and echotexture. Aorta and Inferior Vena Cava: Unremarkable. Other: None. IMPRESSION: 1. Cirrhotic morphology. 2. No focal liver lesion. 3. Ill-defined hypoechoic lesion in the right kidney. Could be evaluated with dedicated CT or MR RADIA
== END 2019-07-18 08:27 | disposition home or self-care (01) ==
LOC: DI 08:26
PROVIDERS: ATTEND Internal Medicine Gastroenterology
DX: K74.60 Unspecified cirrhosis of liver (principal); N28.9 Disorder of kidney and ureter, unspecified
CPT/HCPCS: 76700

== ENCOUNTER 2019-08-19 10:38 | Outpatient (CLI) | payer MEDICARE ==
[2019-08-19] MEDS ORDERED: IOVERSOL 320 100 ML VIAL IVP ONE ×3 (11:00→15:28)
[2019-08-19 11:13] LABS: CALCIUM 8.9 mg/dL (8.5-10.3); CREATININE 0.7 mg/dL (0.4-1.0)
--- NOTE | 2019-08-19 15:46 | CT Report ---
Reason: KIDNEY LESION Procedure Date: 08/19/2019 Accession Number: [id number] / [id number] Procedure: CT - ABDOMEN W/WO CPT Code: Final Report FULL RESULT: EXAM: CT ABDOMEN WITHOUT AND WITH CONTRAST EXAM DATE: 08/19/2019 12:07 PM. HISTORY: Kidney lesion questioned on the ultrasound 07/18/2019 upper pole left kidney. COMPARISON: ABDOMEN COMPLETE 07/18/2019 8:26 AM. ABDOMEN COMPLETE 01/28/2019 9:41 AM. ABDOMEN/PELVIS W/ 01/04/2019 6:19 PM. TECHNIQUE: Routine helical CT imaging was performed through the abdomen before and after administration of IV contrast: 100 mL Optiray 320 contrast. Enteric contrast: No. Reconstruction: Coronal and sagittal. In accordance with CT protocol optimization, one or more of the following dose reduction techniques were utilized for this exam: automated exposure control, adjustment of mA and/or KV based on patient size, or use of iterative reconstructive technique. FINDINGS: Lung Bases: Unremarkable. Liver: Normal. No masses. Gallbladder/Bile Ducts: Surgically absent. No biliary ductal dilatation. Spleen: Normal. Pancreas: Normal. No masses or ductal obstruction. Adrenal Glands: Normal. Kidneys: No masses or hydronephrosis. There is a 5 mm hypodensity of the upper pole left kidney unchanged from prior CT, too small to characterize but likely cyst. There is no correlate on CT for possible hypoechoic mass finding at ultrasound. Peritoneal Cavity/Bowel: Stable large/broad-necked ventral hernia containing omental fat and loops of bowel. No free fluid, free air or adenopathy. No masses or acute inflammatory process. The appendix is not included. Vasculature: No aneurysms or other significant abnormality. Bones: No significant abnormality. Other: Stable moderate sized hiatal hernia. IMPRESSION: 1. Probable incidental 5 mm cyst left upper pole kidney but no CT correlate for possible 2 cm finding on recent ultrasound. 2. Stable large ventral hernia and moderate-sized hiatal hernia. RADIA
== END 2019-08-19 10:39 | disposition home or self-care (01) ==
LOC: DI 10:38
PROVIDERS: ATTEND Registered Nurse
DX: N28.9 Disorder of kidney and ureter, unspecified (principal); K43.9 Ventral hernia without obstruction or gangrene; K44.9 Diaphragmatic hernia without obstruction or gangrene
CPT/HCPCS: 36415; 74170; 80048; Q9967

== ENCOUNTER 2020-04-12 08:00 | Outpatient (CLI) | payer MEDICARE | END 2020-04-12 23:59 | disposition home or self-care (01) | LOC: LAB.R 08:00 | PROVIDERS: ATTEND Registered Nurse | DX: N39.0 Urinary tract infection, site not specified (principal) | CPT/HCPCS: 87077; 87086; 87181 ==

== ENCOUNTER 2020-07-21 11:36 | Outpatient (CLI) | payer MEDICARE ==
[2020-07-21 16:44] LABS: ALKALINE PHOSPHATASE 52 IU/L (42-121); ALT ALANINE AMINOTRANSFERASE 24 IU/L (10-60); AST ASPARTATE AMINOTRANSFERASE 30 IU/L (10-42); BILIRUBIN,TOTAL 0.4 mg/dL (0.2-1.0); TOTAL PROTEIN 7.6 g/dL (6.7-8.2)
[2020-07-21 17:10] LABS: BILIRUBIN,DIRECT < 0.1 mg/dL (0.1-0.5)
== END 2020-07-21 11:37 | disposition home or self-care (01) ==
LOC: LAB.S 11:36
PROVIDERS: ATTEND Registered Nurse
DX: B18.2 Chronic viral hepatitis C (principal)
CPT/HCPCS: 36415; 80076

== ENCOUNTER 2020-09-07 08:02 | Outpatient (CLI) | payer MEDICARE ==
--- NOTE | 2020-09-07 09:23 | Ultrasound Report ---
PROCEDURE: Abdomen Complete INDICATIONS: CIRRHOSIS RELATED TO HEP C TECHNIQUE: Real-time scanning was performed of the abdominal and retroperitoneal organs, with image documentatio n. COMPARISON: CT abdomen and pelvis 08/19/2019 FINDINGS: Liver: Increased hepatic echogenicity with coarsened hepatic echotexture and mildly nodular hepatic c ontour, findings which are consistent with the provided history of cirrhosis. No focal hepatic mass i dentified sonographically. Gallbladder: Status post cholecystectomy. No abnormality in the gallbladder fossa demonstrated. Biliary ducts: Normal caliber common duct. No intrahepatic biliary ductal dilatation. Pancreas: Visualized portions of the pancreas are within normal limits. Spleen: Spleen is normal in size and homogeneous in echotexture. Kidneys: Normal appearance of both kidneys. Aorta: No aortic aneurysm. Soft and calcified atherosclerotic plaque throughout. Iliacs: Not identified IVC: Intrahepatic inferior vena cava appears patent. Miscellaneous: No free abdominal fluid. IMPRESSION: Cirrhotic liver morphology. No sonographic evidence of liver mass. Reviewed by: Bola Duncan MD on 09/07/2020 9:21 AM PST Approved by: Bola Duncan MD on 09/07/2020 9:21 AM PST Station ID: [id number]
== END 2020-09-07 08:03 | disposition home or self-care (01) ==
LOC: DI 08:02
PROVIDERS: ATTEND Internal Medicine Gastroenterology
DX: K74.69 Other cirrhosis of liver (principal); B19.20 Unspecified viral hepatitis C without hepatic coma

== ENCOUNTER 2020-11-10 12:17 | Outpatient (CLI) | payer MEDICARE | END 2020-11-10 12:18 | disposition home or self-care (01) | LOC: COV 12:17 | PROVIDERS: ATTEND Family Medicine | DX: R05 Cough (principal); R53.83 Other fatigue; R68.83 Chills (without fever); Z20.822 Contact with and (suspected) exposure to COVID-19 ==

== ENCOUNTER 2020-12-27 15:13 | Outpatient (CLI) | payer MEDICARE ==
--- NOTE | 2020-12-27 15:56 | XRAY Report ---
PROCEDURE: Chest 2 View X-Ray INDICATIONS: COUGH TECHNIQUE: 2 view(s) of the chest. COMPARISON: 10/31/2016 chest x-ray FINDINGS: Surgical changes and devices: None. Lungs and pleura: No pleural effusions or pneumothorax. Lungs are clear. Mediastinum: Large hiatal hernia. Mediastinal contours are otherwise normal. Heart size is normal. Bones and chest wall: No suspicious bony abnormalities. Soft tissues appear unremarkable. IMPRESSION: 1. No acute process. 2. Hiatal hernia. Reviewed by: Yuliya Rajan MD on 12/27/2020 3:55 PM PDT Approved by: Yuliya Rajan MD on 12/27/2020 3:55 PM PDT Station ID: [id number]
== END 2020-12-27 15:14 | disposition home or self-care (01) ==
LOC: DI.S 15:13
PROVIDERS: ATTEND Nurse Practitioner Family
DX: R05 Cough (principal); K44.9 Diaphragmatic hernia without obstruction or gangrene

== ENCOUNTER 2021-02-15 10:55 | Outpatient (CLI) | payer MEDICARE ==
--- NOTE | 2021-02-15 14:25 | DEXA Report ---
PROCEDURE: Dexa Spine and/or Hip INDICATIONS: POST MENOPAUSAL TECHNIQUE: Dual energy x-ray absorptiometry (DXA) was performed on a Flare3d System. Regions measur ed are the AP Spine, femoral neck, and if needed forearm. COMPARISON: DEXA 03/26/18 FINDINGS: Lumbar Spine: Bone Mineral Density 0.883 g/cm/cm,T score -2.5, compared to -2.9 Left Hip: Bone Mineral Density 0.740 g/cm/cm,T -2.1 compared to -2.2, Left Femoral Neck: Bone Mineral Density 0.698 g/cm/cm, T score -2.4, compared to -2.9 (T score greater or equal to -1.0: NORMAL) (T score from -1.1 to -2.4: OSTEOPENIA) (T score less than or equal to -2.5 to: OSTEOPOROSIS) Impression: 1. Borderline osteoporosis within the lumbar spine and femoral neck, improved compared to prior exam. Stable moderate osteopenia in the left hip. Patients with diagnosis of osteoporosis or osteopenia should have regular bone mineral density assess ment. For those eligible for Medicare, routine testing is allowed once every 2 years. Testing frequ ency can be increased for patients who have rapidly progressing disease or for those who are receivin g medical therapy to restore bone mass. Reviewed by: Shawna Gunderson MD on 02/15/2021 1:06 PM PDT Approved by: Shawna Gunderson MD on 02/15/2021 1:06 PM PDT Station ID: [id number]
== END 2021-02-15 10:56 | disposition home or self-care (01) ==
LOC: DI 10:55
PROVIDERS: ATTEND Nurse Practitioner Family
DX: M81.8 Other osteoporosis without current pathological fracture (principal)

== ENCOUNTER 2021-03-09 09:47 | Outpatient (CLI) | payer MEDICARE ==
--- NOTE | 2021-03-09 17:06 | Ultrasound Report ---
PROCEDURE: Abdomen Complete INDICATIONS: COMPENSATED CIRRHOSIS TECHNIQUE: Real-time scanning was performed of the abdominal and retroperitoneal organs, with image documentatio n. COMPARISON: Ultrasound abdomen 09/07/2020 FINDINGS: Liver: Liver is nodular in appearance measuring 16.6 cm with overall coarsened echotexture. Gallbladder: The gallbladder has been removed. Biliary ducts: Intrahepatic bile ducts are non-dilated. Extrahepatic bile duct caliber measures 8.2 mm. Normal is 6-7 mm or less in diameter, or 10 mm or less post-cholecystectomy. Pancreas: Visualized portions of the pancreas are sonographically normal. Spleen: Spleen is normal in size and homogeneous in echotexture. Kidneys: Kidneys are normal in size and echotexture. Right kidney measures 12.5 cm long; left kidne y measures 12.9 cm long. No hydronephrosis or nephrolithiasis. No solid masses. Aorta: Visualized aorta is normal in caliber at less than 3 cm. Iliacs: Proximal common iliac arteries are normal in caliber at less than 2.5 cm. IVC: Intrahepatic inferior vena cava is patent. Miscellaneous: No free abdominal fluid. IMPRESSION: Unchanged appearance of cirrhotic appearing liver. No focal lesion. No ascites. Reviewed by: Shawna Gunderson MD on 03/09/2021 5:04 PM PDT Approved by: Shawna Gunderson MD on 03/09/2021 5:04 PM PDT Station ID: [id number]
== END 2021-03-09 09:48 | disposition home or self-care (01) ==
LOC: DI 09:47
PROVIDERS: ATTEND Internal Medicine Gastroenterology
DX: K74.69 Other cirrhosis of liver (principal); B19.20 Unspecified viral hepatitis C without hepatic coma

== ENCOUNTER 2021-10-10 08:39 | Outpatient (CLI) | payer MEDICARE ==
--- NOTE | 2021-10-10 13:18 | Ultrasound Report ---
PROCEDURE: Abdomen Complete INDICATIONS: HEP C TECHNIQUE: Real-time scanning was performed of the abdominal and retroperitoneal organs, with image documentatio n. COMPARISON: None. FINDINGS: Liver: Liver size is in the upper limits of normal and measures 16.2 cm in length. Mildly increased liver parenchymal echotexture is seen. No discrete hepatic lesion. Gallbladder: Gallbladder is surgically absent. Biliary ducts: Intrahepatic bile ducts are non-dilated. Extrahepatic bile duct caliber measures 6.7 mm. Normal is 6-7 mm or less in diameter, or 10 mm or less post-cholecystectomy. Pancreas: Visualized portions of the pancreas are sonographically normal. Spleen: Spleen is normal in size and homogeneous in echotexture. Kidneys: Kidneys are normal in size and echotexture. Right kidney measures 11.8 cm long; left kidne y measures 12.2 with slightly nodular liver contour cm long. No hydronephrosis or nephrolithiasis. No solid masses. Aorta: Visualized aorta is normal in caliber at less than 3 cm. Iliacs: Proximal common iliac arteries are normal in caliber at less than 2.5 cm. IVC: Intrahepatic inferior vena cava is patent. Miscellaneous: No free abdominal fluid. IMPRESSION: 1. Borderline hepatomegaly with increased liver parenchymal echotexture and nodular contour suggestiv e of chronic hepatocellular disease. No discrete hepatic lesion is seen. 2. Prior cholecystectomy. No biliary ductal dilatation. 3. Rest of the exam is unremarkable. Reviewed by: Zurdo Blank MD on 10/10/2021 11:24 AM [facility] Approved by: Zurdo Blank MD on 10/10/2021 11:24 AM PST Station ID: [id number]
== END 2021-10-10 08:40 | disposition home or self-care (01) ==
LOC: DI 08:39
PROVIDERS: ATTEND Internal Medicine Gastroenterology
DX: K74.69 Other cirrhosis of liver (principal); B19.20 Unspecified viral hepatitis C without hepatic coma; Z90.49 Acquired absence of other specified parts of digestive tract

== ENCOUNTER 2021-10-17 14:47 | Outpatient (CLI) | payer MEDICARE ==
--- NOTE | 2021-10-17 16:49 | XRAY Report ---
PROCEDURE: Ankle 3 View LT INDICATIONS: CHRONIC PAIN LEFT AND RIGHT FOOT TECHNIQUE: 3 views of the ankle were acquired. COMPARISON: None FINDINGS: Bones: No fractures or dislocations. Ankle mortise is normally aligned. No suspicious bony lesions . Soft tissues: No tibiotalar joint effusion. Achilles tendon appears normal. IMPRESSION: No acute fracture. No osseous lesion. If symptoms and/or clinical suspicion for patholog y continue, further assessment with repeat plain films, or advanced imaging (e.g., CT, MRI, or bone s can) is recommended for further assessment. Reviewed by: Yuliya Rajan MD on 10/17/2021 4:48 PM PST Approved by: Yuliya Rajan MD on 10/17/2021 4:48 PM PST Station ID: [id number]
--- NOTE | 2021-10-17 18:29 | XRAY Report ---
PROCEDURE: Foot 3 View RT INDICATIONS: CHRONIC PAIN LEFT AND RIGHT FOOT TECHNIQUE: 3 views of the foot were acquired. COMPARISON: None. FINDINGS: BONES: No acute, displaced fracture or dislocation. Small plantar calcaneal enthesophyte. SOFT TISSUES: No focal abnormality. IMPRESSION: 1.No acute osseous abnormality. Reviewed by: Oliverio Mcgrath MD on 10/17/2021 6:28 PM [facility] Approved by: Oliverio Mcgrath MD on 10/17/2021 6:28 PM [facility] Station ID: [id number]
== END 2021-10-17 14:48 | disposition home or self-care (01) ==
LOC: DI 14:47
PROVIDERS: ATTEND Podiatrist
DX: M25.572 Pain in left ankle and joints of left foot (principal); M79.672 Pain in left foot

== ENCOUNTER 2021-11-15 10:36 | Outpatient (CLI) | payer MEDICARE | END 2021-11-15 10:37 | disposition home or self-care (01) | LOC: DI 10:36 | PROVIDERS: ATTEND Nurse Practitioner Family | DX: R01.1 Cardiac murmur, unspecified (principal); I51.7 Cardiomegaly; R00.1 Bradycardia, unspecified | CPT/HCPCS: 93306 ==

== ENCOUNTER 2022-01-03 10:56 | Outpatient (CLI) | payer MEDICARE ==
--- NOTE | 2022-01-03 11:19 | CARDIAC PROCEDURE NOTE ---
Stress Test Report Service Date: 01/03/22 Service Time: 11:00 Ordering Provider: Bekah Cotton NP Indication for Test: Assess for a contribution of cardiac ischemia to fatigue. Significant Medical History: -Chelo is referred for a pharmacologic stress myocardial perfusion imaging study, to evaluate for underlying CAD as a contributor to fatigue. She has a >10-15 year history of treated hypertension and reports that with self-monitoring using a wrist BP cuff whose accuracy has been validated within the past year that her systolic BPs run in the 120's-low 130's at home; she does note heart rates in the 50's but is not aware of associated lightheadedness. She describes experiencing a severe flu-like illness at [facility] in 2019, from which she recovered from the acute aspects, but has had exertional fatigue that has not improved since that time. She has had to stagger her activities so as not to "overdo" it. Another chronic symptom has been cough, worse upon arising in the mornings and again in the nighttime hours. She has had a Pulmonary evaluation, including a trial of bronchodilatorsas, well as a course of H2-georgi that she did not tolerate due to diarrhea, which have not been helpful. She also reports that 6-9 months ago she became much more affected by exertional dyspnea, though she denies experiencing much in the way of chest pain/pressure/discomfort, nor positional dyspnea. -As part of the evaluation for her symptom concerns, Chelo underwent a diagnostic echocardiogram on 11/15/21 that was notable for normal left ventricular size and systolic function, with findings of mild concentric left ventricular hypertro phy, moderate dilation of her left atrium and sclerosis without stenosis of her tri-leaflet aortic valve. Cardiac Risk Factors: Positive for hypertension, negative for known hyperlipidemia, diabetes, history of ever smoking tobacco and for known significant family history of CAD. Type of Stress Test: Pharmacologic Stress Test with MPI Pharmacologic Agent: Lexiscan Procedure: -Pharmacologic Stress Test- After signing informed consent, the patient underwent rest SPECT imaging and then performed a walking Lexiscan pharmacologic stress test. After obtaining resting vital signs and EKG (resting), the patient walked for 2 minutes (without elevation) at 0.8 mph ("baseline") followed by injection of Lexiscan and high dose 99Tc-Myoview with an additional 2 minutes of walking ("peak" reassessment) followed by monitoring for an additional 4 minutes ("recovery"). The test was terminated due to completing the protocol. Resting HR: 62 Baseline HR: 70 Peak HR: 82 Normal HR response. Resting BP: 167/79 Baseline BP: 171/79 Peak BP: 200/79 Hypertensive at rest with physiologic BP response to walking and Lexiscan injection. Rhythm during testing: Sinus rhythm throughout. Symptoms: Patient became acutely dyspneic following Lexiscan injection, with gradual decrease back to baseline by the end of the Recovery period. EKG at rest showed normal sinus rhythm, notable only for low precordial QRS voltage magnitude. EKG at peak stress showed no ischemia by EKG criteria. Nuclear imaging was performed at rest and with stress. The image interpretation will be reported separately. IAkin MD, was present throughout this walking Lexiscan stress study and supervised it in its entirety. Summary: 1) Normal resting EKG. 2) Adequate stress was likely achieved. 3) Hypertensive at rest with physiologic BP response to walking and pharmacologic agent. 4) No ischemic changes by EKG criteria were seen at peak stress. 5) Analysis of gated nuclear images reveals normal left ventricular size and systolic function; SPECT analysis reveals a small moderately intense fixed defect in the inferolateral wall, with a small adjacent area showing mild reversibility. See separate report for more detail. CONCLUSIONS: 1) The patient experienced an acute increase in dyspnea, likely a result of Lexiscan adminstration. 2) Abnormal perfusion images, with findings considered potentially due to an infarct with hailey-scar ischemia. Further Cardiology evaluation may be appropriate. 3) She is not sure exactly when she was started on carvedilol or clonidine, she thinks probably prior to her acute illness in late 2019; it might be worth considering a trial of a potent ARB (e.g. irbesartan) and/or chlorthalidone in place of one or both of these agents, in hopes of patient experiencing less fatigue. 4) Patient does not believe she has had a trial of monteleukast, which might be considered to reduce her cough.
[2022-01-03] MEDS ORDERED: REGADENOSON 0.4 MG/5 ML SYRINGE IVP ONE ×2 (12:50→17:25)
--- NOTE | 2022-01-03 17:06 | Nuclear Medicine Report ---
PROCEDURE: Rest and exercise myocardial perfusion SPECT with gated imaging and ejection fraction INDICATIONS: CARDIAC MURMUR/ LEXISCAN RADIOPHARMACEUTICAL: 11.9 mCi Tc-99m Myoview IV at rest and 42.55 mCi Tc-99m Myoview IV at peak exer cise. Igo-gmd-idudsqhe was performed. TECHNIQUE: Radiopharmaceutical was injected at peak stress test, and also at rest. SPECT images wer e obtained. SPECT myocardial perfusion images were displayed in short axis, horizontal long axis, an d vertical long axis views. Gated images were reviewed using AutoQUANT software. COMPARISON: None available. FINDINGS: Raw data: There is good myocardial labeling by radiotracer. No significant motion artifacts. Lung- to-heart ratio is 0.47 (normal is less than 0.46 for tetrafosmin tracer). Left ventricle function: Gated images demonstrate normal left ventricle wall thickening. No segment al wall motion abnormality. No transient ischemic dilation; TID is 1.06 (normal less than 1.30). Th e left ventricle resting end-diastolic volume is 88 mL. Left ventricle stress ejection fraction is 7 9%; normal values are above 45%. Myocardial perfusion: There is a small, moderately intense fixed perfusion defect in the inferolatera l wall. There is small, mildly intense reversible perfusion defect in the inferolateral wall adjacent to the fixed perfusion defect. IMPRESSION: 1. Probably abnormal study demonstrating a small inferolateral wall fixed perfusion defect with a sma ll adjacent reversible perfusion defect concerning for area of prior infarction with mild hailey-infarc t ischemia versus soft tissue attenuation artifact. Recommend cardiology consultation. 2. Normal left ventricular function with no segmental wall motion abnormalities and normal stress LVE F of 79%. PQRS ATTESTATIONS: Measure 322 - Is this imaging test primarily performed on a low-risk surgery patient for preoperative evaluation within 30 days preceding their low-risk non-cardiac surgery? Low-risk surgery is defined as cardiac or myocardial infarction less than 1%, including (but not limited to) endoscopic pr ocedures, superficial procedures, cataract surgery, and excisional breast surgery: Answer: No Measure 323 - Is this imaging test performed primarily for the monitoring of an asymptomatic patient who had percutaneous coronary intervention on the visit date or within 2 years of the visit date? An swer: No Measure 324 - Is this imaging test performed primarily for the initial detection and risk assessment on an asymptomatic, low coronary heart disease patient? Low CHD risk definition = clinicians should consider the maximum number of available patient factors used to estimate risk based on [place] (A TP III criteria), typically age, gender, diabetes, smoking status, and use of blood pressure medicati on, and integrate age appropriate estimates for missing elements, such as LDL or standard blood press ure. Answer: No Reviewed by: Lisa Caro MD, PhD on 01/03/2022 5:04 PM PDT Approved by: Lisa Caro MD, PhD on 01/03/2022 5:04 PM PDT Station ID: [id number]
== END 2022-01-03 10:57 | disposition home or self-care (01) ==
LOC: DI 10:56
PROVIDERS: ATTEND Nurse Practitioner Family
DX: R01.1 Cardiac murmur, unspecified (principal); I10 Essential (primary) hypertension; R94.39 Abnormal result of other cardiovascular function study
CPT/HCPCS: 78452; 93017; A9500; J2785

== ENCOUNTER 2022-03-28 08:44 | Outpatient (CLI) | payer MEDICARE ==
--- NOTE | 2022-03-28 11:30 | Ultrasound Report ---
PROCEDURE: Abdomen Complete INDICATIONS: CIRRHOSIS TECHNIQUE: Real-time scanning was performed of the abdominal and retroperitoneal organs, with image documentatio n. COMPARISON: Ultrasound abdomen, 10/10/2021 and 03/09/2021. FINDINGS: Liver: Liver is normal in size and demonstrates heterogeneous echotexture with nodular contour syste m with cirrhosis. No hepatic mass is visualized.. Gallbladder: Surgically absent. Biliary ducts: Intrahepatic bile ducts are non-dilated. Extrahepatic bile duct caliber measures 6.1 mm. Normal is 6-7 mm or less in diameter, or 10 mm or less post-cholecystectomy. Pancreas: Visualized portions of the pancreas are sonographically normal. Spleen: Spleen is normal in size and homogeneous in echotexture. Kidneys: Kidneys are normal in size and echotexture. Right kidney measures 10.8 cm long; left kidne y measures 11.8 cm long. No hydronephrosis or nephrolithiasis. No solid masses. Aorta: Visualized aorta is normal in caliber at less than 3 cm. Iliacs: Proximal common iliac arteries are normal in caliber at less than 2.5 cm. IVC: Intrahepatic inferior vena cava is patent. Miscellaneous: No free abdominal fluid. IMPRESSION: 1. Cirrhotic liver. No hepatic mass is visualized on ultrasound. Reviewed by: Massiel Marquez MD on 03/28/2022 11:28 AM PDT Approved by: Massiel Marquez MD on 03/28/2022 11:28 AM PDT Station ID: [id number]
== END 2022-03-28 08:45 | disposition home or self-care (01) ==
LOC: DI 08:44
PROVIDERS: ATTEND Internal Medicine Gastroenterology
DX: K74.69 Other cirrhosis of liver (principal); B19.20 Unspecified viral hepatitis C without hepatic coma

== ENCOUNTER 2022-05-11 08:49 | Outpatient (CLI) | payer MEDICARE | END 2022-05-11 08:50 | disposition home or self-care (01) | LOC: NS 08:49 | PROVIDERS: ATTEND Nurse Practitioner Family | DX: E66.01 Morbid (severe) obesity due to excess calories (principal); Z68.41 Body mass index [BMI] 40.0-44.9, adult; R53.83 Other fatigue; M25.569 Pain in unspecified knee; G89.29 Other chronic pain; Z71.3 Dietary counseling and surveillance; Z71.89 Other specified counseling | CPT/HCPCS: 97802 ==

== ENCOUNTER 2022-07-10 10:40 | Outpatient (CLI) | payer MEDICARE ==
--- NOTE | 2022-07-11 11:51 | Mammography Report ---
BILATERAL DIGITAL SCREENING MAMMOGRAM 3D/2D WITH EXAGGERATED CC: 07/10/2022 CLINICAL: Routine screening. Family history of breast cancer. Comparison is made to exams dated: 05/06/2020 mammogram, 04/29/2018 mammogram, and 01/04/2016 mammogram - [facility]. Both breasts are almost entirely fatty (category a/<25% glandular tissue). No significant masses, calcifications, or other findings are seen in either breast. There has been no significant interval change. IMPRESSION: NEGATIVE There is no mammographic evidence of malignancy. A 1 year screening mammogram is recommended. Based on the Tyrer Cuzick model (a risk assessment model) the patients lifetime risk is 3.3% and her 10 year risk is 0.0%. According to the ACR, ACS, and NCCN guidelines, an annual breast MRI exam hattie g with mammogram is recommended if the patients lifetime risk is 20% or greater. This exam was interpreted at Station ID: [id number]. NOTE: For mammograms, a report in lay terms will be sent to the patient. Approximately 15% of breast malignancies will not be visualized mammographically. In the management of a palpable breast mass, a negative mammogram must not discourage biopsy of a clinically suspicious lesion. Electronically Signed By: Damir espitia/flor:07/10/2022 14:42:57 ACR BI-RADS Category 1: Negative 3341F PARENCHYMAL PATTERN: (F) - The breast(s) demonstrate(s) diffuse fatty replacement. BI-RADS CATEGORY: (1) - 1 RECOMMENDATION: (ANNUAL) - Recommend routine annual screening mammography. [id number] 1 year screening LATERALITY: (B)
== END 2022-07-10 10:41 | disposition home or self-care (01) ==
LOC: DI.S 10:40
PROVIDERS: ATTEND Nurse Practitioner Family
DX: Z12.31 Encounter for screening mammogram for malignant neoplasm of breast (principal); Z80.3 Family history of malignant neoplasm of breast

== ENCOUNTER 2022-07-17 11:02 | Outpatient (CLI) | payer MEDICARE | END 2022-07-17 11:03 | disposition home or self-care (01) | LOC: NS 11:02 | PROVIDERS: ATTEND Nurse Practitioner Family | DX: R53.83 Other fatigue (principal); M25.569 Pain in unspecified knee; G89.29 Other chronic pain; E66.9 Obesity, unspecified; Z71.3 Dietary counseling and surveillance; Z71.89 Other specified counseling; Z68.41 Body mass index [BMI] 40.0-44.9, adult | CPT/HCPCS: 97803 ==

== ENCOUNTER 2022-10-23 08:42 | Outpatient (CLI) | payer MEDICARE ==
--- NOTE | 2022-10-23 12:12 | Ultrasound Report ---
PROCEDURE: Abdomen Complete INDICATIONS: CIRRHOSIS TECHNIQUE: Real-time scanning was performed of the abdominal and retroperitoneal organs, with image documentatio n. COMPARISON: None. FINDINGS: Liver: Liver is normal in size. Coarsely heterogeneous and increased liver parenchymal echotexture i s seen, no discrete hepatic lesion. Main portal vein is patent and show normal direction of flow. Gallbladder: Gallbladder is surgically absent. Biliary ducts: Intrahepatic bile ducts are non-dilated. Extrahepatic bile duct caliber measures 6.6 mm. Normal is 6-7 mm or less in diameter, or 10 mm or less post-cholecystectomy. Pancreas: Visualized portions of the pancreas are sonographically normal. Spleen: Spleen is normal in size and homogeneous in echotexture. Kidneys: Kidneys are normal in size and echotexture. Right kidney measures 10.7 cm long; left kidne y measures 12.0 cm long. No hydronephrosis or nephrolithiasis. No solid masses. Aorta: Visualized aorta is normal in caliber at less than 3 cm. Iliacs: Proximal common iliac arteries are normal in caliber at less than 2.5 cm. IVC: Intrahepatic inferior vena cava is patent. Miscellaneous: No free abdominal fluid. IMPRESSION: 1. Slightly degraded study due to patient's body habitus. 2. Coarsely heterogeneous hyperechoic liver parenchyma which may indicate metabolic liver disease suc h as cirrhosis versus hepatic steatosis, no discrete hepatic lesion. 3. Prior cholecystectomy. No biliary ductal dilatation. 3. Rest of the exam is within normal limits. Reviewed by: Zurdo Blank MD on 10/23/2022 12:11 PM PST Approved by: Zurdo Blank MD on 10/23/2022 12:11 PM PST Station ID: [id number]
== END 2022-10-23 08:43 | disposition home or self-care (01) ==
LOC: DI 08:42
PROVIDERS: ATTEND Internal Medicine Gastroenterology
DX: K74.69 Other cirrhosis of liver (principal); B19.20 Unspecified viral hepatitis C without hepatic coma

== ENCOUNTER 2023-03-12 11:15 | Outpatient (CLI) | payer MEDICARE ==
[2023-03-12 14:59] LABS: BASOPHILS % (AUTO) 0.6 %; EOSINOPHILS # (AUTO) 0.1 10^3/uL (0.0-0.7); EOSINOPHILS % (AUTO) 2.6 %; HCT - HEMATOCRIT 39.2 % (37.0-47.0); HGB - HEMOGLOBIN 12.6 g/dL (12.0-16.0); LYMPHOCYTES # (AUTO) 1.5 10^3/uL (1.5-3.5); LYMPHOCYTES % (AUTO) 29.8 %; MEAN CORPUSCULAR HEMOGLOBIN 28.1 pg (27.0-31.0); MEAN CORPUSCULAR HGB CONC 32.1 g/dL (32.0-36.0); MEAN CORPUSCULAR VOLUME 87.3 fL (81.0-99.0); MONOCYTES # (AUTO) 0.7 10^3/uL (0.0-1.0); MONOCYTES % (AUTO) 13.7 %; NEUTROPHILS # (AUTO) 2.7 10^3/uL (1.5-6.6); NEUTROPHILS % (AUTO) 53.1 %; PLT - PLATELET COUNT 222 10^3/uL (130-450); RED BLOOD COUNT 4.49 10^6/uL (4.20-5.40)
[2023-03-12 16:07] LABS: % IRON SATURATION 15 % (20-50); IRON 65 ug/dL (28-170); TOTAL IRON BINDING CAPACITY 431 ug/dL (250-450); TRANSFERRIN 308 mg/dL (192-382)
== END 2023-03-12 11:16 | disposition home or self-care (01) ==
LOC: LAB.S 11:15
PROVIDERS: ATTEND Internal Medicine
DX: R06.09 Other forms of dyspnea (principal)
CPT/HCPCS: 36415; 82728; 83540; 84466; 85025

== ENCOUNTER 2023-04-05 13:39 | Outpatient (CLI) | payer MEDICARE ==
[2023-04-05 19:40] LABS: BASOPHILS % (AUTO) 0.6 %; EOSINOPHILS # (AUTO) 0.1 10^3/uL (0.0-0.7); EOSINOPHILS % (AUTO) 2.4 %; HCT - HEMATOCRIT 42.1 % (37.0-47.0); LYMPHOCYTES # (AUTO) 1.5 10^3/uL (1.5-3.5); LYMPHOCYTES % (AUTO) 28.4 %; MEAN CORPUSCULAR HEMOGLOBIN 27.8 pg (27.0-31.0); MEAN CORPUSCULAR HGB CONC 30.9 g/dL (32.0-36.0); MEAN PLATELET VOLUME 10.3 fL (7.9-10.8); MONOCYTES # (AUTO) 0.6 10^3/uL (0.0-1.0); NEUTROPHILS # (AUTO) 3.1 10^3/uL (1.5-6.6); NEUTROPHILS % (AUTO) 57.4 %; PLT - PLATELET COUNT 202 10^3/uL (130-450); RED BLOOD COUNT 4.68 10^6/uL (4.20-5.40); RED CELL DISTRIBUTION WIDTH 15.3 % (12.0-15.0); WHITE BLOOD COUNT 5.4 x10^3/uL (4.8-10.8)
[2023-04-05 20:10] LABS: % IRON SATURATION 22 % (20-50); IRON 74 ug/dL (28-170); TOTAL IRON BINDING CAPACITY 335 ug/dL (250-450); TRANSFERRIN 239 mg/dL (192-382)
== END 2023-04-05 13:40 | disposition home or self-care (01) ==
LOC: LAB.S 13:39
PROVIDERS: ATTEND Internal Medicine
DX: R78.89 Finding of other specified substances, not normally found in blood (principal)
CPT/HCPCS: 36415; 82728; 83540; 84466; 85025

== ENCOUNTER 2023-04-17 08:46 | Outpatient (CLI) | payer MEDICARE ==
--- NOTE | 2023-04-17 15:17 | Ultrasound Report ---
PROCEDURE: Abdomen Complete INDICATIONS: COMPENSATED CIRRHOSIS RELATED TO HEP C TECHNIQUE: Real-time scanning was performed of the abdominal and retroperitoneal organs, with image documentatio n. COMPARISON: Ultrasound abdomen 10/23/2022 FINDINGS: Liver: Liver is normal in size with mildly coarsened echotexture and mildly increased echogenicity. No focal hepatic mass. Gallbladder: Status post cholecystectomy. Biliary ducts: Intrahepatic bile ducts are non-dilated. Extrahepatic bile duct caliber measures 7 m m. Normal is 6-7 mm or less in diameter, or 10 mm or less post-cholecystectomy. Pancreas: Visualized portions of the pancreas are sonographically normal. Spleen: Spleen is normal in size and homogeneous in echotexture. Kidneys: Kidneys are normal in size and echotexture. Right kidney measures 10.3 cm long; left kidne y measures 10.9 cm long. No hydronephrosis or nephrolithiasis. No solid masses. No complex renal cy stic lesions which require follow-up. Aorta: Visualized aorta is normal in caliber at less than 3 cm. Iliacs: Proximal common iliac arteries are normal in caliber at less than 2.5 cm. IVC: Intrahepatic inferior vena cava is patent. Miscellaneous: No free abdominal fluid. IMPRESSION: Coarsened hepatic echotexture and mildly increased echogenicity may be related to chronic hepatitis a nd mild cirrhosis versus mild steatosis. No focal hepatic mass. Reviewed by: Damir Cottrell MD on 04/17/2023 3:16 PM PDT Approved by: Damir Cottrell MD on 04/17/2023 3:16 PM PDT Station ID: [id number]
== END 2023-04-17 08:47 | disposition home or self-care (01) ==
LOC: DI 08:46
PROVIDERS: ATTEND Internal Medicine Gastroenterology
DX: K74.69 Other cirrhosis of liver (principal); B19.20 Unspecified viral hepatitis C without hepatic coma

== ENCOUNTER 2023-05-01 11:01 | Outpatient (CLI) | payer MEDICARE ==
[2023-05-01 14:55] LABS: BASOPHILS % (AUTO) 0.8 %; EOSINOPHILS # (AUTO) 0.2 10^3/uL (0.0-0.7); EOSINOPHILS % (AUTO) 3.1 %; HCT - HEMATOCRIT 42.8 % (37.0-47.0); HGB - HEMOGLOBIN 13.6 g/dL (12.0-16.0); LYMPHOCYTES # (AUTO) 1.3 10^3/uL (1.5-3.5); LYMPHOCYTES % (AUTO) 27.3 %; MEAN CORPUSCULAR HEMOGLOBIN 28.7 pg (27.0-31.0); MEAN CORPUSCULAR HGB CONC 31.8 g/dL (32.0-36.0); MEAN CORPUSCULAR VOLUME 90.3 fL (81.0-99.0); MEAN PLATELET VOLUME 10.4 fL (7.9-10.8); MONOCYTES # (AUTO) 0.5 10^3/uL (0.0-1.0); MONOCYTES % (AUTO) 10.6 %; NEUTROPHILS # (AUTO) 2.8 10^3/uL (1.5-6.6); PLT - PLATELET COUNT 213 10^3/uL (130-450); RED BLOOD COUNT 4.74 10^6/uL (4.20-5.40); RED CELL DISTRIBUTION WIDTH 14.6 % (12.0-15.0); WHITE BLOOD COUNT 4.8 x10^3/uL (4.8-10.8)
[2023-05-01 15:31] LABS: CRP - C-REACTIVE PROTEIN 0.7 mg/dL (<0.5)
[2023-05-01 15:48] LABS: FERRITIN 70.3 ng/mL (11.0-306.8)
--- NOTE | 2023-05-01 16:49 | XRAY Report ---
PROCEDURE: Knee 3 View RT INDICATIONS: KNEE JOINT PAIN,RIGHT TECHNIQUE: 3 views of the right knee(s) were acquired. COMPARISON: None. FINDINGS: Bones: Expected appearance of patellar orthopedic hardware. No evidence of hardware failure or loose michael. No acute fracture or dislocation. Mild diffuse osteopenia. Chondrocalcinosis. Mild osteophytosi s and mild lateral compartment joint space loss. Soft tissues: Small knee joint effusion. No suspicious soft tissue calcifications or masses. IMPRESSION: Relatively mild degenerative arthritis of the right knee. Reviewed by: Antonino Hurley MD on 05/01/2023 4:48 PM PDT Approved by: Antonino Hurley MD on 05/01/2023 4:48 PM PDT Station ID: [id number]
== END 2023-05-01 11:02 | disposition home or self-care (01) ==
LOC: DI.S 11:01
PROVIDERS: ATTEND Internal Medicine
DX: M17.11 Unilateral primary osteoarthritis, right knee (principal); R78.89 Finding of other specified substances, not normally found in blood; D50.9 Iron deficiency anemia, unspecified; K92.1 Melena; R06.09 Other forms of dyspnea; L73.9 Follicular disorder, unspecified; M72.2 Plantar fascial fibromatosis; M25.473 Effusion, unspecified ankle; B18.2 Chronic viral hepatitis C; Z91.81 History of falling; N28.9 Disorder of kidney and ureter, unspecified; H26.9 Unspecified cataract; K74.69 Other cirrhosis of liver; G25.81 Restless legs syndrome; L50.0 Allergic urticaria; E66.01 Morbid (severe) obesity due to excess calories; K21.9 Gastro-esophageal reflux disease without esophagitis
CPT/HCPCS: 36415; 82728; 83540; 84466; 84550; 85025; 86140; 86200

== ENCOUNTER 2023-05-22 11:16 | Outpatient (CLI) | payer MEDICARE ==
--- NOTE | 2023-05-22 12:55 | XRAY Report ---
PROCEDURE: Chest 2 View X-Ray INDICATIONS: CHRONIC COUGH TECHNIQUE: 2 views of the chest were acquired. COMPARISON: Chest x-ray 12/27/2020 FINDINGS: Surgical changes and devices: None. Lungs and pleura: No pleural effusions or pneumothorax. Lungs are clear. Mediastinum: Mediastinal contours appear normal. Heart size is normal. Bones and chest wall: No suspicious bony lesions. Overlying soft tissues appear unremarkable. IMPRESSION: No acute cardiopulmonary process. Reviewed by: Markie Singer MD on 05/22/2023 12:54 PM PDT Approved by: Markie Singer MD on 05/22/2023 12:54 PM PDT Station ID: [id number]
[2023-05-22 15:44] LABS: ALBUMIN 4.1 g/dL (3.2-5.5); ALBUMIN/GLOBULIN RATIO 1.3 (1.0-2.2); BILIRUBIN,TOTAL 0.4 mg/dL (0.2-1.0); CALCIUM 9.8 mg/dL (8.5-10.3); CREATININE 0.7 mg/dL (0.6-1.3); POTASSIUM 4.2 mmol/L (3.5-4.5); TOTAL PROTEIN 7.3 g/dL (6.4-8.9)
== END 2023-05-22 11:17 | disposition home or self-care (01) ==
LOC: DI.S 11:16
PROVIDERS: ATTEND Internal Medicine
DX: R05.3 Chronic cough (principal); K74.69 Other cirrhosis of liver
CPT/HCPCS: 36415; 80053

== ENCOUNTER 2023-07-24 11:31 | Outpatient (CLI) | payer MEDICARE ==
[2023-07-24 15:25] LABS: HGB - HEMOGLOBIN 14.2 g/dL (12.0-16.0); MEAN CORPUSCULAR HEMOGLOBIN 29.9 pg (27.0-31.0); MEAN CORPUSCULAR VOLUME 90.5 fL (81.0-99.0); MEAN PLATELET VOLUME 10.4 fL (7.9-10.8); RED BLOOD COUNT 4.75 10^6/uL (4.20-5.40); RED CELL DISTRIBUTION WIDTH 13.2 % (12.0-15.0); WHITE BLOOD COUNT 4.7 x10^3/uL (4.8-10.8)
== END 2023-07-24 11:32 | disposition home or self-care (01) ==
LOC: LAB.S 11:31
PROVIDERS: ATTEND Internal Medicine
DX: I10 Essential (primary) hypertension (principal); D50.0 Iron deficiency anemia secondary to blood loss (chronic); K92.1 Melena; R06.09 Other forms of dyspnea; R79.89 Other specified abnormal findings of blood chemistry
CPT/HCPCS: 36415; 82607; 82728; 83540; 83880; 84466; 85027

== ENCOUNTER 2023-08-24 10:43 | Outpatient (CLI) | payer MEDICARE ==
--- NOTE | 2023-08-24 15:46 | DEXA Report ---
PROCEDURE: Dexa Spine and/or Hip INDICATIONS: OSTEOPOROSIS TECHNIQUE: Dual energy x-ray absorptiometry (DXA) was performed on a [employer] System. Regions measur ed are the AP Spine, femoral neck, and if needed forearm. COMPARISON: DEXA 02/15/2021 FINDINGS: Lumbar Spine: Bone Mineral Density 0.865 g/cm/cm,T score -2.7 compared to -2.5. Left Femoral Neck: Bone Mineral Density 0.712 g/cm/cm, T score -2.3 compared to -2.4. Left Hip: Bone Mineral Density 0.764 g/cm/cm,T score -1.9 compared to -2.1. 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 Patients with diagnosis of osteoporosis or osteopenia should have regular bone mineral density assess ment. For those eligible for Medicare, routine testing is allowed once every 2 years. Testing frequ ency can be increased for patients who have rapidly progressing disease or for those who are receivin g medical therapy to restore bone mass. Reviewed by: Shawna Gunderson MD on 08/24/2023 3:45 PM PST Approved by: Shawna Gunderson MD on 08/24/2023 3:45 PM PST Station ID: [id number]
== END 2023-08-24 10:44 | disposition home or self-care (01) ==
LOC: DI 10:43
PROVIDERS: ATTEND Internal Medicine
DX: M81.0 Age-related osteoporosis without current pathological fracture (principal)

== ENCOUNTER 2023-09-06 14:03 | Outpatient (CLI) | payer MEDICARE ==
[2023-09-06 19:43] LABS: BASOPHILS % (AUTO) 0.8 %; EOSINOPHILS # (AUTO) 0.2 10^3/uL (0.0-0.7); EOSINOPHILS % (AUTO) 3.1 %; HCT - HEMATOCRIT 42.8 % (37.0-47.0); HGB - HEMOGLOBIN 13.4 g/dL (12.0-16.0); LYMPHOCYTES # (AUTO) 1.5 10^3/uL (1.5-3.5); LYMPHOCYTES % (AUTO) 29.4 %; MEAN CORPUSCULAR HEMOGLOBIN 28.8 pg (27.0-31.0); MEAN CORPUSCULAR HGB CONC 31.3 g/dL (32.0-36.0); MEAN CORPUSCULAR VOLUME 91.8 fL (81.0-99.0); MONOCYTES # (AUTO) 0.7 10^3/uL (0.0-1.0); MONOCYTES % (AUTO) 12.8 %; NEUTROPHILS # (AUTO) 2.8 10^3/uL (1.5-6.6); NEUTROPHILS % (AUTO) 53.7 %; PLT - PLATELET COUNT 215 10^3/uL (130-450); RED BLOOD COUNT 4.66 10^6/uL (4.20-5.40); RED CELL DISTRIBUTION WIDTH 13.4 % (12.0-15.0); WHITE BLOOD COUNT 5.2 x10^3/uL (4.8-10.8)
[2023-09-06 20:13] LABS: ALBUMIN 4.1 g/dL (3.2-5.5); ALBUMIN/GLOBULIN RATIO 1.6 (1.0-2.2); BILIRUBIN,TOTAL 0.4 mg/dL (0.2-1.0); CALCIUM 9.5 mg/dL (8.5-10.3); CREATININE 0.6 mg/dL (0.6-1.3); TOTAL PROTEIN 6.6 g/dL (6.4-8.9)
[2023-09-06 20:31] LABS: FERRITIN 23.5 ng/mL (11.0-306.8)
== END 2023-09-06 14:04 | disposition home or self-care (01) ==
LOC: LAB.S 14:03
PROVIDERS: ATTEND Internal Medicine
DX: D50.0 Iron deficiency anemia secondary to blood loss (chronic) (principal); K92.1 Melena; R79.89 Other specified abnormal findings of blood chemistry
CPT/HCPCS: 36415; 80053; 82607; 82728; 83540; 84466; 85025

== ENCOUNTER 2023-10-12 10:27 | Outpatient (CLI) | payer MEDICARE ==
[2023-10-12 14:24] LABS: BASOPHILS # (AUTO) 0.1 10^3/uL (0.0-0.1); BASOPHILS % (AUTO) 0.9 %; EOSINOPHILS # (AUTO) 0.2 10^3/uL (0.0-0.7); HGB - HEMOGLOBIN 13.7 g/dL (12.0-16.0); LYMPHOCYTES # (AUTO) 1.4 10^3/uL (1.5-3.5); LYMPHOCYTES % (AUTO) 26.8 %; MEAN CORPUSCULAR HEMOGLOBIN 29.3 pg (27.0-31.0); MEAN CORPUSCULAR HGB CONC 32.6 g/dL (32.0-36.0); MEAN CORPUSCULAR VOLUME 89.7 fL (81.0-99.0); MEAN PLATELET VOLUME 10.2 fL (7.9-10.8); MONOCYTES # (AUTO) 0.7 10^3/uL (0.0-1.0); MONOCYTES % (AUTO) 13.4 %; NEUTROPHILS # (AUTO) 2.9 10^3/uL (1.5-6.6); NEUTROPHILS % (AUTO) 55.7 %; PLT - PLATELET COUNT 208 10^3/uL (130-450); RED BLOOD COUNT 4.68 10^6/uL (4.20-5.40); RED CELL DISTRIBUTION WIDTH 13.2 % (12.0-15.0); WHITE BLOOD COUNT 5.3 x10^3/uL (4.8-10.8)
[2023-10-12 17:00] LABS: FERRITIN 18.1 ng/mL (11.0-306.8)
== END 2023-10-12 10:28 | disposition home or self-care (01) ==
LOC: LAB.S 10:27
PROVIDERS: ATTEND Internal Medicine
DX: D50.0 Iron deficiency anemia secondary to blood loss (chronic) (principal); K92.1 Melena; R79.89 Other specified abnormal findings of blood chemistry
CPT/HCPCS: 36415; 82728; 83540; 84466; 85025

== ENCOUNTER 2023-11-05 08:56 | Outpatient (CLI) | payer MEDICARE ==
--- NOTE | 2023-11-05 23:38 | Ultrasound Report ---
PROCEDURE: Abdomen Complete INDICATIONS: COMPENSATED HCV CIRRHOSIS TECHNIQUE: Real-time scanning was performed of the abdominal and retroperitoneal organs, with image documentatio n. COMPARISON: None. FINDINGS: Liver: Macrolobulated liver contour, course and echogenicity, increased echogenicity and no solid ma ss. Patent portal vein. Gallbladder: Absent. Biliary ducts: Intrahepatic bile ducts are non-dilated. Extrahepatic bile duct caliber measures 6.3 mm. Normal is 6-7 mm or less in diameter, or 10 mm or less post-cholecystectomy. Pancreas: Visualized portions of the pancreas are sonographically normal. Spleen: Spleen is normal in size and homogeneous in echotexture. Kidneys: Kidneys are normal in size and echotexture. Right kidney measures 11.6 cm long; left kidne y measures 11.9 cm long. No hydronephrosis or nephrolithiasis. No solid masses. No complex renal cy stic lesions which require follow-up. Aorta: Visualized aorta is normal in caliber at less than 3 cm. Iliacs: Proximal common iliac arteries are normal in caliber at less than 2.5 cm. IVC: Intrahepatic inferior vena cava is patent. Miscellaneous: No free abdominal fluid. IMPRESSION: Cirrhotic liver morphology. No solid mass. No splenomegaly. Reviewed by: Papi Mosley MD on 11/05/2023 11:37 PM PST Approved by: Papi Mosley MD on 11/05/2023 11:37 PM PST Station ID: [id number]
== END 2023-11-05 08:57 | disposition home or self-care (01) ==
LOC: DI 08:56
PROVIDERS: ATTEND Internal Medicine Gastroenterology
DX: K74.69 Other cirrhosis of liver (principal); B19.20 Unspecified viral hepatitis C without hepatic coma

== ENCOUNTER 2023-12-10 10:41 | Outpatient (CLI) | payer MEDICARE ==
[2023-12-10 14:49] LABS: BASOPHILS # (AUTO) 0.1 10^3/uL (0.0-0.1); EOSINOPHILS # (AUTO) 0.2 10^3/uL (0.0-0.7); EOSINOPHILS % (AUTO) 3.3 %; HGB - HEMOGLOBIN 13.7 g/dL (12.0-16.0); LYMPHOCYTES # (AUTO) 1.3 10^3/uL (1.5-3.5); LYMPHOCYTES % (AUTO) 27.1 %; MEAN CORPUSCULAR HEMOGLOBIN 28.6 pg (27.0-31.0); MEAN CORPUSCULAR HGB CONC 30.4 g/dL (32.0-36.0); MEAN CORPUSCULAR VOLUME 93.9 fL (81.0-99.0); MEAN PLATELET VOLUME 9.9 fL (7.9-10.8); MONOCYTES # (AUTO) 0.7 10^3/uL (0.0-1.0); MONOCYTES % (AUTO) 14.5 %; NEUTROPHILS # (AUTO) 2.6 10^3/uL (1.5-6.6); NEUTROPHILS % (AUTO) 53.9 %; PLT - PLATELET COUNT 234 10^3/uL (130-450); RED BLOOD COUNT 4.79 10^6/uL (4.20-5.40); RED CELL DISTRIBUTION WIDTH 13.2 % (12.0-15.0); WHITE BLOOD COUNT 4.9 x10^3/uL (4.8-10.8)
[2023-12-10 16:06] LABS: FERRITIN 17.8 ng/mL (11.0-306.8)
== END 2023-12-10 10:42 | disposition home or self-care (01) ==
LOC: LAB.S 10:41
PROVIDERS: ATTEND Internal Medicine
DX: R78.89 Finding of other specified substances, not normally found in blood (principal)
CPT/HCPCS: 36415; 82728; 83540; 84466; 85025

== ENCOUNTER 2023-12-18 11:31 | Outpatient (CLI) | payer MEDICARE ==
[2023-12-18 17:14] LABS: ALBUMIN 3.9 g/dL (3.2-5.5); ALBUMIN/GLOBULIN RATIO 1.3 (1.0-2.2); BILIRUBIN,TOTAL 0.4 mg/dL (0.2-1.0); CALCIUM 9.2 mg/dL (8.5-10.3); CREATININE 0.6 mg/dL (0.6-1.3); TOTAL PROTEIN 6.8 g/dL (6.4-8.9)
== END 2023-12-18 11:32 | disposition home or self-care (01) ==
LOC: LAB.S 11:31
PROVIDERS: ATTEND Internal Medicine
DX: R78.89 Finding of other specified substances, not normally found in blood (principal); D50.0 Iron deficiency anemia secondary to blood loss (chronic)
CPT/HCPCS: 36415; 80053; 82728; 83540; 84466

== ENCOUNTER 2024-01-18 12:45 | Outpatient (CLI) | payer MEDICARE ==
[2024-01-18] MEDS ORDERED: iohexoL-300 100 ML VIAL ONE (12:53)
[2024-01-18] MEDS: iohexoL-300 100 ML VIAL IVP ONE (14:33)
--- NOTE | 2024-01-18 14:41 | CT Report ---
PROCEDURE: Chest W INDICATIONS: CHRONIC COUGH CONTRAST: 100ml omni 300 TECHNIQUE: After the administration of intravenous contrast, a CT scan of the chest was performed. Images were recorded and evaluated at appropriate window settings. Reformats: axial MIP of the chest, coronal and sagittal. For radiation dose reduction, the following was used: automated exposure control, adjustme nt of mA and/or kV according to patient size. COMPARISON: Chest radiograph dated 05/22/2023. FINDINGS: Image quality: Diagnostic. Chest wall and lower neck: No thyroid nodule which requires sonographic follow up. No axillary or sup raclavicular adenopathy by size. Lungs and pleura: No consolidation. No pleural effusions. No pneumothorax. No suspicious pulmonary n odules which require follow up. Mild bibasilar atelectasis. No septal thickening or nodularity. Mediastinum: Heart size is normal. No pericardial effusion. No large vessel abnormality. No mediastin al adenopathy by size criteria. Atherosclerotic vascular calcifications of the coronary arteries. Bones: No aggressive osseous abnormality. Upper Abdomen: Status post cholecystectomy. Moderate-sized hiatal hernia. IMPRESSION: CT chest without acute cardiopulmonary abnormalities. No focal airspace disease identified. No suspic ious pulmonary nodules. Moderate size hiatal hernia. Coronary artery atherosclerosis. Status post cholecystectomy. Reviewed by: Arias Morrow MD on 01/18/2024 2:39 PM PDT Approved by: Arias Morrow MD on 01/18/2024 2:39 PM PDT Station ID: [id number]
== END 2024-01-18 12:46 | disposition home or self-care (01) ==
LOC: DI 12:45
PROVIDERS: ATTEND Internal Medicine
DX: R05.3 Chronic cough (principal); K44.9 Diaphragmatic hernia without obstruction or gangrene; I25.10 Atherosclerotic heart disease of native coronary artery without angina pectoris; Z90.49 Acquired absence of other specified parts of digestive tract
CPT/HCPCS: 71260; Q9967

== ENCOUNTER 2024-02-06 14:10 | Outpatient (CLI) | payer MEDICARE ==
[2024-02-06 19:45] LABS: ABSOLUTE RETICS # AUTO 0.089 10^6/uL (0.020-0.110); BASOPHILS # (AUTO) 0.1 10^3/uL (0.0-0.1); BASOPHILS % (AUTO) 0.8 %; EOSINOPHILS # (AUTO) 0.2 10^3/uL (0.0-0.7); HCT - HEMATOCRIT 43.4 % (37.0-47.0); LYMPHOCYTES # (AUTO) 1.6 10^3/uL (1.5-3.5); LYMPHOCYTES % (AUTO) 25.7 %; MEAN CORPUSCULAR HEMOGLOBIN 29.2 pg (27.0-31.0); MEAN CORPUSCULAR HGB CONC 32.3 g/dL (32.0-36.0); MEAN CORPUSCULAR VOLUME 90.4 fL (81.0-99.0); MEAN PLATELET VOLUME 9.6 fL (7.9-10.8); MONOCYTES # (AUTO) 0.8 10^3/uL (0.0-1.0); MONOCYTES % (AUTO) 12.7 %; NEUTROPHILS # (AUTO) 3.5 10^3/uL (1.5-6.6); NEUTROPHILS % (AUTO) 57.5 %; PLT - PLATELET COUNT 202 10^3/uL (130-450); RED CELL DISTRIBUTION WIDTH 13.3 % (12.0-15.0)
[2024-02-06 20:10] LABS: RETICULOCYTE COUNT % (AUTO) 2.28 % (0.5-2.3)
[2024-02-06 20:26] LABS: CRP - C-REACTIVE PROTEIN 0.6 mg/dL (<0.5)
[2024-02-06 20:43] LABS: THYROID STIMULATING HORMONE 1.61 uIU/mL (0.34-5.60)
== END 2024-02-06 14:11 | disposition home or self-care (01) ==
LOC: LAB.S 14:10
PROVIDERS: ATTEND Internal Medicine
DX: D50.0 Iron deficiency anemia secondary to blood loss (chronic) (principal); R78.89 Finding of other specified substances, not normally found in blood; R53.83 Other fatigue
CPT/HCPCS: 36415; 82728; 82746; 84443; 85025; 85045; 86140

== ENCOUNTER 2024-04-07 08:15 | Outpatient (CLI) | payer MEDICARE ==
--- NOTE | 2024-04-07 20:50 | Ultrasound Report ---
PROCEDURE: Abdomen Limited INDICATIONS: CIRRHOSIS TECHNIQUE: Ultrasound of the abdominal right upper quadrant was obtained with image documentation. COMPARISONS: 11/05/2023 FINDINGS: Liver: Echogenic hepatic echotexture without focal mass lesion. Gallbladder: Cholecystectomy Common Bile Duct: 5.1 mm. Pancreas: Unremarkable as visualized. Right Kidney: Appropriate in size and echotexture. No evidence of hydronephrosis. No shadowing calc lawrence. No solid or cystic mass lesion. IMPRESSION: Stable hepatic cirrhosis without evidence of mass lesion. Reviewed by: Ian Salinas MD on 04/07/2024 7:49 PM NEERAJ Approved by: Ian Salinas MD on 04/07/2024 7:49 PM AKDT Station ID: [id number]
== END 2024-04-07 08:16 | disposition home or self-care (01) ==
LOC: DI 08:15
PROVIDERS: ATTEND Internal Medicine Gastroenterology
DX: K74.60 Unspecified cirrhosis of liver (principal)

== ENCOUNTER 2024-04-21 14:49 | Outpatient (CLI) | payer MEDICARE | END 2024-04-21 14:50 | disposition home or self-care (01) | LOC: DI 14:49 | PROVIDERS: ATTEND Internal Medicine | DX: R06.2 Wheezing (principal); R05.3 Chronic cough; R53.83 Other fatigue; R06.09 Other forms of dyspnea; K74.69 Other cirrhosis of liver; B18.2 Chronic viral hepatitis C; D50.0 Iron deficiency anemia secondary to blood loss (chronic); I11.9 Hypertensive heart disease without heart failure | CPT/HCPCS: 36415; 80053; 82728; 83540; 84466; 85025; 93307 ==

== ENCOUNTER 2024-04-21 15:44 | Outpatient (CLI) | payer MEDICARE ==
[2024-04-21 16:01] LABS: BASOPHILS % (AUTO) 0.6 %; EOSINOPHILS # (AUTO) 0.2 10^3/uL (0.0-0.7); EOSINOPHILS % (AUTO) 2.9 %; HCT - HEMATOCRIT 43.5 % (37.0-47.0); HGB - HEMOGLOBIN 14.2 g/dL (12.0-16.0); LYMPHOCYTES # (AUTO) 1.7 10^3/uL (1.5-3.5); LYMPHOCYTES % (AUTO) 26.7 %; MEAN CORPUSCULAR HEMOGLOBIN 28.6 pg (27.0-31.0); MEAN CORPUSCULAR HGB CONC 32.6 g/dL (32.0-36.0); MEAN CORPUSCULAR VOLUME 87.5 fL (81.0-99.0); MONOCYTES # (AUTO) 0.6 10^3/uL (0.0-1.0); NEUTROPHILS # (AUTO) 3.8 10^3/uL (1.5-6.6); NEUTROPHILS % (AUTO) 60.6 %; PLT - PLATELET COUNT 215 10^3/uL (130-450); RED BLOOD COUNT 4.97 10^6/uL (4.20-5.40); RED CELL DISTRIBUTION WIDTH 13.3 % (12.0-15.0); WHITE BLOOD COUNT 6.2 x10^3/uL (4.8-10.8)
[2024-04-21 16:14] LABS: ALBUMIN 4.3 g/dL (3.2-5.5); ALBUMIN/GLOBULIN RATIO 1.3 (1.0-2.2); BILIRUBIN,TOTAL 0.4 mg/dL (0.2-1.0); CALCIUM 10.1 mg/dL (8.5-10.3); CREATININE 0.7 mg/dL (0.6-1.3); POTASSIUM 3.9 mmol/L (3.5-4.5); TOTAL PROTEIN 7.5 g/dL (6.4-8.9)
[2024-04-21 16:34] LABS: FERRITIN 10.8 ng/mL (11.0-306.8)
== END 2024-04-21 15:45 | disposition home or self-care (01) ==
LOC: LAB 15:44
PROVIDERS: ATTEND Internal Medicine
DX: K74.69 Other cirrhosis of liver (principal); B18.2 Chronic viral hepatitis C; I10 Essential (primary) hypertension; D50.0 Iron deficiency anemia secondary to blood loss (chronic)
CPT/HCPCS: 36415; 80053; 82728; 83540; 84466; 85025

== ENCOUNTER 2024-05-07 08:29 | Outpatient (CLI) | payer MEDICARE | END 2024-05-07 08:30 | disposition home or self-care (01) | LOC: LAB.S 08:29 | PROVIDERS: ATTEND Registered Nurse | DX: R73.9 Hyperglycemia, unspecified (principal) | CPT/HCPCS: 36415; 82947 ==

== ENCOUNTER 2024-07-02 13:53 | Outpatient (CLI) | payer MEDICARE ==
--- NOTE | 2024-07-03 10:50 | Mammography Report ---
BILATERAL DIGITAL SCREENING MAMMOGRAM 3D/2D WITH EXAGGERATED CC: 07/02/2024 CLINICAL: Routine screening. Family history of breast cancer. Comparison is made to exams dated: 07/10/2022 mammogram, 05/06/2020 mammogram, and 04/29/2018 mammogram - [facility]. The breasts are almost entirely fatty (category a/<25% glandular tissue). No significant masses, calcifications, or other findings are seen in either breast. There has been no significant interval change. IMPRESSION: NEGATIVE There is no mammographic evidence of malignancy. A 1 year screening mammogram is recommended. Based on the Tyrer Cuzick model (a risk assessment model) the patient's lifetime risk is 2.6% and her 10 year risk is 0.0%. According to the ACR, ACS, and NCCN guidelines, an annual breast MRI exam hattie g with mammogram is recommended if the patient's lifetime risk is 20% or greater. This exam was interpreted at Station ID: [id number]. NOTE: For mammograms, a report in lay terms will be sent to the patient. Approximately 15% of breast malignancies will not be visualized mammographically. In the management of a palpable breast mass, a negative mammogram must not discourage biopsy of a clinically suspicious lesion. Electronically Signed By: Kaiser botello/flor:07/02/2024 15:03:45 letter sent: No_Letter ACR BI-RADS Category 1: Negative PARENCHYMAL PATTERN: (F) - The breast(s) demonstrate(s) diffuse fatty replacement. BI-RADS CATEGORY: (1) - 1 RECOMMENDATION: (ANNUAL) - Recommend routine annual screening mammography. [id number] 1 year screening LATERALITY: (B)
== END 2024-07-02 13:54 | disposition home or self-care (01) ==
LOC: DI.S 13:53
PROVIDERS: ATTEND Internal Medicine
DX: Z12.31 Encounter for screening mammogram for malignant neoplasm of breast (principal); Z80.3 Family history of malignant neoplasm of breast

== ENCOUNTER 2024-07-02 14:00 | Outpatient (CLI) | payer MEDICARE ==
[2024-07-02 19:54] LABS: BASOPHILS % (AUTO) 0.5 %; EOSINOPHILS # (AUTO) 0.2 10^3/uL (0.0-0.7); EOSINOPHILS % (AUTO) 2.7 %; HCT - HEMATOCRIT 43.8 % (37.0-47.0); HGB - HEMOGLOBIN 13.8 g/dL (12.0-16.0); LYMPHOCYTES # (AUTO) 1.3 10^3/uL (1.5-3.5); LYMPHOCYTES % (AUTO) 21.8 %; MEAN CORPUSCULAR HEMOGLOBIN 28.3 pg (27.0-31.0); MEAN CORPUSCULAR HGB CONC 31.5 g/dL (32.0-36.0); MEAN CORPUSCULAR VOLUME 89.9 fL (81.0-99.0); MEAN PLATELET VOLUME 10.4 fL (7.9-10.8); MONOCYTES # (AUTO) 0.7 10^3/uL (0.0-1.0); MONOCYTES % (AUTO) 12.2 %; NEUTROPHILS # (AUTO) 3.7 10^3/uL (1.5-6.6); NEUTROPHILS % (AUTO) 62.5 %; PLT - PLATELET COUNT 196 10^3/uL (130-450); RED BLOOD COUNT 4.87 10^6/uL (4.20-5.40); RED CELL DISTRIBUTION WIDTH 13.8 % (12.0-15.0); WHITE BLOOD COUNT 5.9 x10^3/uL (4.8-10.8)
[2024-07-02 20:25] LABS: CALCIUM 9.6 mg/dL (8.5-10.3); CREATININE 0.6 mg/dL (0.6-1.3); POTASSIUM 4.2 mmol/L (3.5-4.5)
[2024-07-02 20:50] LABS: FERRITIN 511.9 ng/mL (11.0-306.8)
== END 2024-07-02 14:01 | disposition home or self-care (01) ==
LOC: LAB.S 14:00
PROVIDERS: ATTEND Internal Medicine
DX: R73.9 Hyperglycemia, unspecified (principal); Z79.899 Other long term (current) drug therapy; R53.83 Other fatigue; R78.89 Finding of other specified substances, not normally found in blood
CPT/HCPCS: 36415; 80048; 82728; 83540; 84466; 85025